=== PATIENT | male | born 1945 | race Caucasian/White ===

== ENCOUNTER 2020-05-04 17:43 | Outpatient (REF) | payer OTHER, SELFPAY ==
--- NOTE | 2020-05-04 18:15 | MR_ITS ---
EXAMINATION: MR BRAIN WITHOUT CONTRAST CLINICAL INFORMATION: Concussion. COMPARISON: None. TECHNIQUE: Multiplanar, multisequence imaging of the brain was performed without contrast. Limited study with motion artifacts. FINDINGS: No diffusion abnormalities are identified to suggest an acute infarct. The ventricles are normal in size. No mass effect or midline shift is seen. Mild chronic white matter microangiopathic changes noted. No extra-axial fluid collections are seen. The brainstem and cerebellum are normal. The gradient refocused acquisition is normal. The craniovertebral junction, marrow signal, and midline structures are normal. The major intracranial flow voids at the level of the [place] of [place] are preserved. The dural venous sinus flow voids are maintained. The mastoid air cells are well aerated. There is moderate ethmoid sinus mucosal thickening and milder mucosal thickening in the frontal and maxillary sinuses. Small proteinaceous retention cyst noted along the floor of the right maxillary antrum. IMPRESSION: Limited study with motion artifacts. Mild chronic white matter microangiopathy. Moderate ethmoid sinus mucosal thickening.
== END 2020-05-04 17:44 | disposition home or self-care (01) ==
LOC: HO.MRI 17:43
PROVIDERS: PCP Internal Medicine; Visit Provider Internal Medicine
DX: S06.0X1S Concussion with loss of consciousness of 30 minutes or less, sequela (principal); R41.3 Other amnesia
CPT/HCPCS: 70551

== ENCOUNTER → 2020-06-30 15:42 | Outpatient (BNVA) | payer OTHER, SELFPAY | PROVIDERS: PCP Internal Medicine; Referring Provider Internal Medicine; Visit Provider Nurse Practitioner | DX: Z76.89 Persons encountering health services in other specified circumstances (principal) ==

== ENCOUNTER 2020-08-02 15:38 | Outpatient (REF) | payer OTHER, SELFPAY ==
[2020-08-02 17:26] LABS: Thyroid Stimulating Hormone 1.39 uIU/mL (0.32-4.0); Vitamin D 25-OH Total 37.1 ng/mL (>30)
[2020-08-02 17:37] LABS: Vitamin B12 569 pg/mL (200-900)
[2020-08-03 08:49] LABS: Syphilis Screen Reactive (Nonreactive)
[2020-08-03 12:42] LABS: Lyme Abs Screen <0.90 index
[2020-08-06 12:37] LABS: Vitamin B1 9 nmol/L (8-30)
[2020-08-09 14:44] LABS: RPR Quantitative Reactive 1:1 (Nonreactive); T.Pallidum Particle Agg Test Reactive (Nonreactive)
== END 2020-08-02 15:39 | disposition home or self-care (01) ==
LOC: HO.LAB 15:38
PROVIDERS: Absent Provider Psychiatry & Neurology Neurology; PCP Internal Medicine; Visit Provider Internal Medicine
DX: R41.3 Other amnesia (principal); S06.0X1S Concussion with loss of consciousness of 30 minutes or less, sequela; F03.90 Unspecified dementia, unspecified severity, without behavioral disturbance, psychotic disturbance, mood disturbance, and anxiety
CPT/HCPCS: 36415; 82306; 82607; 84425; 84443; 86592; 86618; 86780

== ENCOUNTER 2020-08-11 17:29 | Outpatient (REF) | payer OTHER, SELFPAY ==
--- NOTE | 2020-08-11 18:15 | MR_ITS ---
MRI OF THE BRAIN WITHOUT IV CONTRAST INDICATION: MILD DEMENTIA, CEREBRAL MICRO VASCULAR DISEASE COMPARISON: 05/04/2020 TECHNIQUE: Multiplanar multisequence MR imaging of the brain was obtained without IV contrast. FINDINGS: There is no hydrocephalus, extra-axial surface collection, or herniation. Mild to moderate chronic microangiopathy. The major flow voids at the skull base are preserved. There is no acute infarct on diffusion-weighted imaging. There is no intracranial hemorrhage on the gradient recalled echo acquisition. The midline structures are normal. The cerebellar tonsils are normally positioned. The cerebellum and brainstem are normal. The craniocervical junction is normal. Osseous marrow signal intensity is homogenous. The visualized soft tissues are unremarkable. Retention cyst right maxillary sinus. MR/MR head/brain wo con IMPRESSION: - No acute intracranial findings. - Mild to moderate chronic microangiopathy.
== END 2020-08-11 17:30 | disposition home or self-care (01) ==
LOC: HO.MRI 17:29
PROVIDERS: Visit Provider Psychiatry & Neurology Neurology
DX: F03.90 Unspecified dementia, unspecified severity, without behavioral disturbance, psychotic disturbance, mood disturbance, and anxiety (principal); I67.9 Cerebrovascular disease, unspecified
CPT/HCPCS: 70551

== ENCOUNTER 2020-08-18 09:06 | Outpatient (REF) | payer OTHER, SELFPAY ==
[2020-08-18 10:48] LABS: HIV AB/AG Nonreactive (Nonreactive); HIV Num 1 0.06 S/CO (0.00-0.99)
== END 2020-08-18 09:07 | disposition home or self-care (01) ==
LOC: HO.LAB 09:06
PROVIDERS: PCP Internal Medicine; Visit Provider Psychiatry & Neurology Neurology
DX: A52.3 Neurosyphilis, unspecified (principal)
CPT/HCPCS: 36415; 87389

== ENCOUNTER 2020-08-19 07:45 | Outpatient (REF) | payer OTHER, SELFPAY ==
--- NOTE | ~2020-08-19 | FL_ITS ---
EXAMINATION: FL BARIUM SWALLOW CLINICAL INFORMATION: Oropharyngeal dysphagia. COMPARISON: None TECHNIQUE: Barium swallow examination is performed using fluoroscopic evaluation in addition to multiple fluoroscopic spot views. The patient is imaged both upright and prone and using both thick and thin sulfate along with effervescent granules. Fluoroscopy time: 2.6 minutes DAP: 8.75 Gycm2 Images: 94 FINDINGS: Following oral administration of thick barium and barium-coated turkey in upright view, there is normal propagation of bolus from the oral cavity through the pharynx, esophagus into stomach without any laryngeal penetration or aspiration. No obstruction or narrowing seen. Prominent deep piriform sinuses are seen bilaterally with mild retention of barium. On placing patient prone lying and oral administration of thin barium, there is good distention of the entire esophagus without obstruction. No intrinsic or extrinsic indentation seen. FL/FL barium swallow IMPRESSION: Slightly deep bilateral piriform sinuses extending in the lower neck with mild retention of the barium which clears with subsequent swallowing. The rest of the barium swallow exam is unremarkable.
== END 2020-08-19 07:46 | disposition home or self-care (01) ==
LOC: HO.XRAY 07:45
PROVIDERS: Visit Provider Internal Medicine
DX: R07.0 Pain in throat (principal); R13.12 Dysphagia, oropharyngeal phase
CPT/HCPCS: 74220

== ENCOUNTER 2020-08-31 07:52 | Outpatient (REF) | payer OTHER, SELFPAY ==
[2020-08-31] VITALS (9 sets, daily range): BP systolic 113–135; BP diastolic 57–75; PULSE 58–72; RESP 16–18; TEMP 36.3–37.1; O2SAT 95–100; BMI 26.3
--- NOTE | ~2020-08-31 | FL_ITS ---
PROCEDURE: FL XR LUMBAR PUNCTURE CLINICAL INFORMATION: Neurosyphilis. COMPARISON: None TECHNIQUE: Fluoroscopic-guided lumbar puncture. FINDINGS: Informed consent was obtained from the patient prior to the procedure. During this process, the procedure and potential alternatives were explained, along with the intended outcome and benefits. The risks of the procedure, as well as the risk of not doing the procedure, were discussed. The patient was given the opportunity to ask questions regarding the procedure and appeared competent to make medical decisions. A signed consent form which documents this discussion was placed in the medical record. Using sterile technique and fluoroscopic guidance, a 22-gauge spinal needle was directed from a posterior approach into the thecal sac at the level of the L4-L5 disc space. A total of 5 mL of CSF were obtained. Opening pressure was 17 mL of water. Closing pressure was 16 mL of water. Patient tolerated the procedure without difficulty. FLUOROSCOPY TIME: 1.0 minutes. DOSE AREA PRODUCT: 5.924 uGy-m2 (microgray-meter squared). FL/FL guided lumbar puncture LP IMPRESSION: Unremarkable lumbar puncture L4-L5 level as described.
[2020-08-31 09:41] LABS: Prothrombin Time 11.3 SEC (10.8-13.0)
[2020-08-31 09:44] LABS: Partial Thromboplastin Time 33.1 SEC (24.1-38.0)
[2020-08-31 15:08] LABS: CSF Appearance Clear, Colorless; CSF Tube # 3
[2020-08-31 15:15] LABS: Glucose CSF 52 mg/dL; Total Protein CSF 34.6 mg/dL (15-45)
[2020-08-31 15:27] LABS: Appearance CSF CLEAR; CSF Monos 0 %; CSF Other Cells % 0 %; CSF Tube # 4; CSF Volume 1.5 ML; Color CSF COLORLESS; Lymphocytes CSF 0 %; Neutrophils CSF 0 %; Red Blood Cell CSF 53 MM*3; White Blood Cell CSF 0 MM*3
[2020-09-01 06:17] LABS: Oligoclonal Serum Yes
[2020-09-02 14:56] LABS: VDRL Qualitative CSF Nonreactive (Nonreactive)
[2020-09-03 10:42] LABS: Albumin 4.1 g/dL (3.2-4.6); Albumin, CSF 22.8 mg/dL (8.0-42.0); IgG 861 mg/dL (600-1540); IgG Synthesis Rate -2.4 mg/24 h (-9.9-3.3); IgG, CSF 2.3 mg/dL (0.8-7.7)
== END 2020-08-31 17:27 | disposition home or self-care (01) ==
LOC: HO.MS 07:52
PROVIDERS: PCP Internal Medicine; Visit Provider Psychiatry & Neurology Neurology
PROC: 009U3ZZ Drainage of Spinal Canal, Percutaneous Approach (ICD-10-PCS; CPT 62270; principal; 2020-08-31 08:00)
DX: A52.3 Neurosyphilis, unspecified (principal); F03.90 Unspecified dementia, unspecified severity, without behavioral disturbance, psychotic disturbance, mood disturbance, and anxiety; I67.9 Cerebrovascular disease, unspecified; Z87.820 Personal history of traumatic brain injury
CPT/HCPCS: 36415; 62328; 82042; 82945; 83916; 84157; 85610; 85730; 86592; 87015; 87070; 87205; 89051

== ENCOUNTER → 2020-10-10 15:27 | Outpatient (BNVA) | payer OTHER, SELFPAY | PROVIDERS: PCP Internal Medicine; Visit Provider Internal Medicine ==

== ENCOUNTER → 2020-10-26 16:13 | Outpatient (BNVA) | payer OTHER, SELFPAY | PROVIDERS: Visit Provider Internal Medicine | DX: A53.9 Syphilis, unspecified (principal) | CPT/HCPCS: J0561 ==

== ENCOUNTER → 2020-11-02 16:18 | Outpatient (BNVA) | payer OTHER, SELFPAY | PROVIDERS: Visit Provider Internal Medicine | DX: A53.9 Syphilis, unspecified (principal) | CPT/HCPCS: J0561 ==

== ENCOUNTER → 2020-11-09 16:00 | Outpatient (BNVA) | payer OTHER, SELFPAY | PROVIDERS: Visit Provider Internal Medicine | DX: A53.9 Syphilis, unspecified (principal) | CPT/HCPCS: J0561 ==

== ENCOUNTER 2021-01-09 15:15 | Outpatient (REF) | payer OTHER, SELFPAY ==
[2021-01-09 16:27] LABS: Hemoglobin 12.7 g/dl (14.0-18.0); Mean Corpuscular HGB Conc 32.6 g/dl (31.0-36.0); Mean Corpuscular Hemoglobin 27.7 pg (27.0-33.0); Mean Platelet Volume 10.2 fL (9.4-12.4); Platelet Count 206 X10*3/uL (160-400); Red Blood Count 4.59 X10*6/uL (4.60-5.80); Red Cell Distribution Width 12.8 % (11.0-16.0); White Blood Count 6.3 X10*3/uL (4.8-10.8)
[2021-01-09 16:48] LABS: Alanine Aminotransferase 22 U/L (0-40); Albumin Level 4.2 g/dL (3.5-5.0); Alkaline Phosphatase 71 U/L (39-117); Anion Gap 10 (12-20); Aspartate Amino Transferase 25 U/L (5-37); Bilirubin Total 0.9 mg/dL (0.0-1.0); Blood Urea Nitrogen 17 mg/dL (9-16); Calcium 8.8 mg/dL (8.4-10.2); Carbon Dioxide 26 mmol/L (22-29); Chloride 109 mmol/L (96-108); Estimated Glomerular Filt Rate > 60; Glucose Random 84 mg/dL (60-115); Potassium 4.4 mmol/L (3.3-5.1); Sodium 141 mmol/L (135-145); Total Protein 6.5 g/dL (6.5-8.0)
== END 2021-01-09 15:16 | disposition home or self-care (01) ==
LOC: HO.LAB 15:15
PROVIDERS: PCP Internal Medicine; Referring Provider Internal Medicine; Visit Provider Nurse Practitioner Family
DX: Z01.818 Encounter for other preprocedural examination (principal)
CPT/HCPCS: 36415; 80053; 85027

== ENCOUNTER 2021-03-10 06:34 | Day surgery (SDC) | payer OTHER, SELFPAY ==
[2021-03-06 10:20] VITALS: BMI 28.9
--- NOTE | 2021-03-09 08:34 | HO.ANESPROP2 ---
Documented by User: Ronel Delaney NP 03/09/21 08:35 HPI - Anesthesia Eval Consult details Narrative: 75yo M for Colonoscopy PMFSH Active Problems Active Problems: All Active Problems (Updated 03/06/21 @ 10:45 by Janis Waterman RN) Syphilis (Acute) Past Medical History Medical History Family history of adverse effect to anesthesia History of lumbar puncture Syphilis Family History Family History Mother Heart attack Paternal Uncle Alcoholic cirrhosis Cancer Paternal Aunt Thyroid condition Diabetes Surgical History Surgical History History of nasal septoplasty Social History Social History Household Members: Children Alcohol intake: never Patient Tobacco Use Status: Former Tobacco user Quit Date: 35+ years ago Tobacco use type: Cigarette Use of substances other than those prescribed or required for medical reasons: No Advance Directives Information Provided: No Recently lost weight without trying: No Eating poorly because of decreased appetite: No Nutrition Risks: No Nutritional Risk Meds Allergies Allergy/AdvReac Type Severity Reaction Status Date / Time No Known Allergies Allergy Verified 03/10/21 07:10 Home Medications Medication Instructions Recorded Confirmed Last Taken Type aspirin 81 mg tablet,delayed 81 mg PO DAILY 01/09/21 03/10/21 03/08/21 History release (Adult Low Dose Aspirin) Exam Exam Date and Time: March 09, 2021 0834 Height,Weight and Vital Signs: Height 5 ft 1 in Weight 69.4 kg Pertinent Lab Results Pertinent Lab Results: Laboratory Tests 01/09/21 01/09/21 16:15 16:15 WBC 6.3 Hgb 12.7 L Hct 39.0 L Plt Count 206 Sodium 141 Potassium 4.4 Chloride 109 H Carbon Dioxide 26 BUN 17 H Creatinine 0.83 Assessment and Plan Assessment Anesthesia Assessment: Chart Reviewed Documented by User: Mercedes Sheltno MD 03/10/21 07:16 [facility] Past Medical History Medical History Family history of adverse effect to anesthesia History of lumbar puncture Syphilis Family History Family History Mother Heart attack Paternal Uncle Alcoholic cirrhosis Cancer Paternal Aunt Thyroid condition Diabetes Family history of problems with anesthesia: No Surgical History Surgical History History of nasal septoplasty History of Problems with Anesthesia: No Social History Social History Household Members: Children Alcohol intake: never Patient Tobacco Use Status: Former Tobacco user Quit Date: 35+ years ago Tobacco use type: Cigarette Use of substances other than those prescribed or required for medical reasons: No Advance Directives Information Provided: No Recently lost weight without trying: No Eating poorly because of decreased appetite: No Nutrition Risks: No Nutritional Risk Meds Allergies Allergy/AdvReac Type Severity Reaction Status Date / Time No Known Allergies Allergy Verified 03/10/21 07:10 Home Medications Medication Instructions Recorded Confirmed Last Taken Type aspirin 81 mg tablet,delayed 81 mg PO DAILY 01/09/21 03/10/21 03/08/21 History release (Adult Low Dose Aspirin) Exam Airway Mallampati Class: II TM Dist: >3cm Neck ROM: Full Assessment and Plan Assessment Anesthesia Assessment: Anesthesia Plan Discussed Final Anesthetic Review Family History of Problems with Anesthesia: No History of Problems with Anesthesia: No NPO: Yes ASA Class: II Final Preanesthetic Review: No Changes in Pt Med Stat, Meds/Allgs Chart Reviewed, Consent Obtained/Reviewed and Anes Risks/Benef Reviewed Patient Risk: Low Procedure Risk: Low Anesthetic Plan Anesthetic Plan: MAC: Disposition: Standard PACU
[2021-03-10 07:01] VITALS: BP 131/74; PULSE 65; RESP 16; TEMP 36.8; O2SAT 98
[2021-03-10] MEDS: Lactated Ringers 1,000 ML 100 ML IVCONT (07:11)
[2021-03-10] MEDS: Sodium Phosphate,Mono-Dibasic 133 ML ENEMA PR (07:15)
--- NOTE | 2021-03-10 07:16 | MHC.SHP ---
Pre-Procedural Eval Section A Date of Service: 03/10/21 The patient is an INPATIENT: No The History & Physical has been completed within 30 days and I have reviewed it.: No Section B Chief Complaint: Screening Details of Present Illness: Colon Cancer screening Relevant Family History (Specify if Yes): No Relevant Social History: None Present Medications: see Short Stay Collaborative assessment Medical History: Significant History (Syphilis) History of Previous Operations: Relevant previous surgery/procedure and date(s) (History of nasal septoplasty) Allergies: Allergies Allergy/AdvReac Type Severity Reaction Status Date / Time No Known Allergies Allergy Verified 03/10/21 07:10 Review of Systems Sugical H&P ROS: Negative: Constitution, Cardiovascular, Respiratory and Gastrointestinal Exam Surgical H&P Exam: Normal: Heart, Normal: Lungs and Normal: Extremities and Significant Findings: Abdomen (incisional hernia) Plan Diagnosis/Plan: Unchanged I have reviewed the history and physical and performed a pertinent physical examination on my patient. No changes have occurred unless specified.
--- NOTE | 2021-03-10 07:17 | PM.OP ---
Brief Operative Note Date of Service: 03/10/21 Pre-op diagnosis: Colon cancer screening Post-op diagnosis: other (Colon polyps, diverticulosis, hemorrhoid) Procedure: COLONOSCOPY TILL CECUM WITH BIOPSIES AND SNARE POLYPECTOMY Consent: Indications for the procedure and potential complications of bleeding, perforation, reaction to medications and missed diagnosis were discussed with the patient and informed consent was obtained. Instrument: Olympus PCF H 190 L variable stiffness pediatric colonoscope Monitoring: Vital signs and clinical assessment, intermittent blood pressure monitoring, continuous EKG monitoring, Pulse oximetry and Carbon Dioxide monitoring were done throughout the procedure. Colon withdrawl time was 26 minutes. Procedure: The patient was placed in the left lateral decubitis position and pre-procedure medications were administered. After a digital rectal examination of the ano-rectum, the video colonoscope was inserted into the rectum and advanced through the colon to the cecum. The colonoscope was slowly withdrawn in a retrograde panoramic fashion and the colon mucosa was carefully examined including a retroflexed view of the rectum. Findings and interventions are described below. Procedure Difficulty: Colon was long and tortuous due to presence a large ventral hernia. Patient was placed in the supine position and abdominal pressure was applied to intubate the transverse colon Findings: Terminal Ileum: Not evaluated Cecum: Normal Ascending Colon: A 2.5 cms sessile polyp in the proximal AC overlying fold. Polyp was removed with a hot snare. Only part of the polyp was retrieved. Transverse Colon: A 10 mm sessile polyp - removed with a hot snare. A 4-5 mm sessile polyp removed with the cold biopsy Descending Colon: Moderate diverticulosis Sigmoid Colon: Moderate diverticulosis Rectum: 5-6 mm sessile polyp removed with the cold biopsy Ano-rectum: Moderate internal hemorrhoids Colon preparation: Excellent after some irrigation Impression and Post Procedure Diagnosis: Colonoscopy Findings: Two large to medium sized and two small polyps removed Moderate diverticulosis seen in the left colon Moderate hemorrhoids on retroflexed exam. Plan: Await pathology results Patient has an appointment on 03/24/21 in the GI Clinic with Lolly Silva FNP-BC. Repeat Colonoscopy interval based on path results - in 2 years if polyps are adenomatous and 10 years if polyps are hyperplastic. Above findings were reviewed with the patient and colon polyps and diverticulosis handouts were given in the discharge area Surgeon: Halley Vines MD Anesthesia: MAC (Drew Caldera CRNA) Was an Building Equipment Operator used for this Procedure?: Yes Building Equipment Operator: Laura Yanez Estimated blood loss (mL): 0 Pathology: other ( a: ascending colon polyp b: transverse colon polyps c: rectal polyp) Condition: stable Disposition: PACU
--- NOTE | 2021-03-10 07:39 | W.PM.OPN ---
Operative Note Operative Note Date of Service: 03/10/21 Narrative: Pre-op diagnosis:?Colon cancer screening Post-op diagnosis:?other (Colon polyps, diverticulosis, hemorrhoid) Procedure:? COLONOSCOPY TILL CECUM WITH BIOPSIES AND SNARE POLYPECTOMY Consent: Indications for the procedure and potential complications of bleeding, perforation, reaction to medications and missed diagnosis were discussed with the patient and informed consent was obtained. Instrument: Olympus PCF H 190 L variable stiffness pediatric colonoscope Monitoring: Vital signs and clinical assessment, intermittent blood pressure monitoring, continuous EKG monitoring, Pulse oximetry and Carbon Dioxide monitoring were done throughout the procedure. Colon withdrawl time was 26 minutes. Procedure: The patient was placed in the left lateral decubitis position and pre-procedure medications were administered. After a digital rectal examination of the ano-rectum, the video colonoscope was inserted into the rectum and advanced through the colon to the cecum. The colonoscope was slowly withdrawn in a retrograde panoramic fashion and the colon mucosa was carefully examined including a retroflexed view of the rectum. Findings and interventions are described below. Procedure Difficulty:? Colon was long and tortuous due to presence a large ventral hernia.? Patient was placed in the supine position and abdominal pressure was applied to intubate the transverse colon Findings: Terminal Ileum: Not evaluated Cecum:? Normal Ascending Colon:? A 2.5 cms sessile polyp in the proximal AC overlying fold.? Polyp was removed with a hot snare. Only part of the polyp was retrieved. Transverse Colon:? A 10 mm sessile polyp - removed with a hot snare.? A 4-5 mm sessile polyp removed with the cold biopsy Descending Colon:? Moderate diverticulosis Sigmoid Colon:? Moderate diverticulosis Rectum:? 5-6 mm sessile polyp removed with the cold biopsy Ano-rectum:? Moderate internal hemorrhoids Colon preparation: Excellent? after some irrigation Impression and Post Procedure Diagnosis: Colonoscopy Findings: Two large to medium sized and two small polyps removed Moderate diverticulosis seen in the left colon Moderate hemorrhoids on retroflexed exam. Plan: Await pathology results Patient has an appointment on 03/24/21 in the GI Clinic with ? Lolly Silva FNP-BC. Repeat Colonoscopy interval based on path results - in 2 years if polyps are adenomatous and 10 years if polyps are hyperplastic. Above findings were reviewed with the patient and colon polyps and diverticulosis handouts were given in the discharge area Surgeon:?Halley Vines MD Anesthesia:?MAC (Drew Caldera CRNA) Was an Transitional Living Specialist used for this Procedure?:?Yes Transitional Living Specialist:?Laura Yanez Estimated blood loss (mL):?0 Pathology:?other ( a: ascending colon polyp? b: transverse colon polyps? c: rectal polyp) Condition:?stable Disposition:?PACU
[2021-03-10 08:33] VITALS: BP 110/52; PULSE 69; RESP 16; TEMP 36.5; O2SAT 97
[2021-03-10 08:48] VITALS: BP 114/58; PULSE 53; RESP 19; O2SAT 96
[2021-03-10 09:00] VITALS: BP 118/60; PULSE 53; RESP 19; O2SAT 98
== END 2021-03-10 09:22 | disposition home or self-care (01) ==
PROVIDERS: PCP Internal Medicine; Visit Provider Internal Medicine Gastroenterology
PROC: 0DJD8ZZ Inspection of Lower Intestinal Tract, Via Natural or Artificial Opening Endoscopic (ICD-10-PCS; CPT 45378; principal; 2021-03-10 07:30)
DX: Z12.11 Encounter for screening for malignant neoplasm of colon (principal); D12.2 Benign neoplasm of ascending colon; D12.3 Benign neoplasm of transverse colon; K62.1 Rectal polyp; K57.30 Diverticulosis of large intestine without perforation or abscess without bleeding; K64.8 Other hemorrhoids; K43.9 Ventral hernia without obstruction or gangrene
CPT/HCPCS: 45385; 45380; 88305

== ENCOUNTER → 2021-04-04 15:42 | Outpatient (BNVA) | payer OTHER, SELFPAY | PROVIDERS: Referring Provider Internal Medicine; Visit Provider Nurse Practitioner Family ==

== ENCOUNTER → 2021-06-30 16:09 | Outpatient (BNVA) | payer OTHER, SELFPAY | PROVIDERS: PCP Internal Medicine; Referring Provider Internal Medicine; Visit Provider Nurse Practitioner Family ==

== ENCOUNTER 2022-01-09 15:26 | Outpatient (REF) | payer OTHER, SELFPAY ==
--- NOTE | ~2022-01-09 | US_ITS ---
EXAMINATION: US VENOUS ULTRASOUND WITH DOPPLER LOWER EXTREMITY, BILATERAL CLINICAL INFORMATION: Bilateral hip pain. COMPARISON: None TECHNIQUE: Ultrasound of the deep veins is performed from the hip to the calf with compression sonography and color and pulse Doppler assessment. Spectral analysis with color-flow imaging is performed. FINDINGS: RIGHT: There is normal venous compression and respiratory variation and augmented flow. The visualized common femoral vein, superficial femoral vein, profunda femoral vein, popliteal vein, and the trifurcation region shows no evidence of deep venous thrombosis. There is no significant popliteal fossa cyst. There are varicose vein seen in the right. No fossa. No Orr's cyst seen. LEFT: There is normal venous compression and respiratory variation and augmented flow. The visualized common femoral vein, superficial femoral vein, profunda femoral vein, popliteal vein, and the trifurcation region shows no evidence of deep venous thrombosis. There is no significant popliteal fossa cyst. If the patient's symptoms persist, followup ultrasound in 5 days 7 days might be of value to exclude proximal propagation from a non-visualized calf vein. US/US venous duplex LE BI IMPRESSION: No DVT demonstrated in the bilateral lower extremity.
== END 2022-01-09 15:27 | disposition home or self-care (01) ==
LOC: HO.US 15:26
PROVIDERS: Visit Provider Registered Nurse Community Health
DX: M79.651 Pain in right thigh (principal); M79.652 Pain in left thigh
CPT/HCPCS: 93970

== ENCOUNTER → 2022-11-14 09:57 | Outpatient (BNVA) | payer MEDICARE, SELFPAY | PROVIDERS: PCP Internal Medicine; Visit Provider Nurse Practitioner Family | DX: N40.0 Benign prostatic hyperplasia without lower urinary tract symptoms (principal); R35.0 Frequency of micturition | CPT/HCPCS: 51798; 99202 ==

== ENCOUNTER 2022-11-16 10:48 | Outpatient (REF) | payer MEDICARE, SELFPAY ==
[2022-11-16 13:00] LABS: Prostate Specific Antigen 1.36 ng/mL (<0.05-4.0)
== END 2022-11-16 10:49 | disposition home or self-care (01) ==
LOC: HO.LAB 10:48
PROVIDERS: PCP Internal Medicine; Visit Provider Nurse Practitioner Family
DX: N40.0 Benign prostatic hyperplasia without lower urinary tract symptoms (principal); Z12.5 Encounter for screening for malignant neoplasm of prostate
CPT/HCPCS: 36415; 84153

== ENCOUNTER 2022-11-29 09:37 | Outpatient (REF) | payer MEDICARE, SELFPAY ==
--- NOTE | ~2022-11-29 | US_ITS ---
EXAMINATION: US RETROPERITONEAL COMPLETE (RENAL) CLINICAL INFORMATION: Frequency of micturition. COMPARISON: None available. TECHNIQUE: Real-time imaging of the kidneys and bladder. FINDINGS: RIGHT KIDNEY: 11.0 x 4.4 x 5.3 cm (SAG x AP x TRV). The kidney is normal in size, contour, and echogenicity. Renal cortical thickness is normal. No calculi or focal parenchymal lesions. No hydronephrosis. LEFT KIDNEY: 9.7 x 5.1 x 5.7 cm (SAG x AP x TRV). Lobular renal contour which may reflect areas of parenchymal cortical scarring. Renal cortical thickness is normal. No calculi or focal parenchymal lesions. No hydronephrosis. BLADDER: Partially distended. Bilateral ureteral jets are demonstrated. Prevoid bladder volume is 120.05 mL. Postvoid bladder volume is 17.8 mL. Trabeculated urinary bladder. ADDITIONAL FINDINGS: Prostate is enlarged measuring 109 mL. US/US retroperitoneal comp IMPRESSION: 1. Lobular left renal contour which may reflect areas of parenchymal cortical scarring. 2. Trabeculated urinary bladder. 3. Prostate is enlarged measuring 109 mL.
== END 2022-11-29 09:38 | disposition home or self-care (01) ==
LOC: HO.US 09:37
PROVIDERS: PCP Internal Medicine; Visit Provider Nurse Practitioner Family
DX: N40.1 Benign prostatic hyperplasia with lower urinary tract symptoms (principal); R35.0 Frequency of micturition
CPT/HCPCS: 76770

== ENCOUNTER → 2022-12-26 10:09 | Outpatient (BNVA) | payer MEDICARE, SELFPAY | PROVIDERS: PCP Internal Medicine; Visit Provider Nurse Practitioner Family | DX: N40.0 Benign prostatic hyperplasia without lower urinary tract symptoms (principal); R39.9 Unspecified symptoms and signs involving the genitourinary system | CPT/HCPCS: 51798; 99212 ==

== ENCOUNTER 2023-03-27 14:12 | Outpatient (AMB) | payer MEDICARE, SELFPAY ==
--- NOTE | 2023-03-27 14:22 | A.OFFVIS_ITS ---
Intake Vital Signs 03/27/23 14:26 Height 4 ft 11 in Weight 160 lb BMI 32.3 BP 144/74 H Blood Pressure Location Lt brachial Position Sitting Pulse 78 Intake Visit Reasons: 1 year f/u colonoscopy, TA Intake Note: Patient yearly follow up Patient denies any GI issues. 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 Patient will need colonoscopy in 2022. Patient denies any abdominal pain or discomfort Constipation Patient reports that he is moving his bowels every day. Eating more fruits and vegetables and drinking plenty fluids. Patient is also pretty active works full- time. I will see him in 1 year to re-evaluate. Patient will be due to go for colorectal screening. Patient denies any melena, hematochezia, unintentional weight loss of in like stools. He is agreeable to this plan and verbalizes understanding of instructions. He was given the opportunity to ask questions and all questions answered. TODAY'S VISIT Patient is here today for follow-up. Patient reports that he has been doing well. Denies any GI concerning symptoms. Denies any melena, hematochezia, unintentional weight loss or ribbon like stools. Patient denies any dyspepsia, dysphagia or odynophagia. Patient reports that he has been moving his bowels well without any issues. Patient denies any issues with anesthesia in the past. Overdue for colonoscopy will try to poke it today. Patient is going to another appointment to see his urologist today. Patient reports having trouble voiding. Patient denies any abdominal pain or discomfort. Patient denies any pelvic pain. Denies any back pain. No burning when urinating. Patient is not taking any anticoagulation medication. No history of sleep apnea. [facility] Medical History Diverticulosis Family history of adverse effect to anesthesia History of lumbar puncture Syphilis Tubular adenoma Surgical History Hx of colonoscopy History of nasal septoplasty Family History Mother Heart attack Paternal Uncle Alcoholic cirrhosis Cancer Paternal Aunt Thyroid condition Diabetes Social History Household Members: Children Alcohol intake: never Patient Tobacco Use Status: Former Tobacco user Quit Date: 35+ years ago Tobacco use type: Cigarette Review of Systems Const Denies weight gain and Denies weight loss ENT Reports no additional complaints, Denies dysphagia and Denies odynophagia Card Reports no additional complaints Resp Reports no additional complaints GI Denies abdominal pain, Denies belching, Denies melena, Denies bloating, Denies change in bowel habits, Denies dysphagia, Denies excessive flatus, Denies dyspepsia, Denies heartburn, Denies diarrhea, Denies loose stools, Denies nausea, Denies odynophagia and Denies vomiting Reports no additional complaints Musc Reports no additional complaints Neuro Reports no additional complaints Psych Reports no additional complaints Endo Reports no additional complaints Physical Exam Vital Signs: Last Vital Signs Pulse 78 03/27/23 14:26 BP 144/74 H 03/27/23 14:26 BMI result Body Mass Index 32.3 Const General: healthy appearing, no acute distress and well developed Nutritional Appearance: well nourished Orientation/consciousness: patient oriented x3 HEENT Head: Yes normal to inspection, Yes normocephalic and Yes atraumatic Face and sinus: Yes normal facial exam Mouth: Normal oral and palatal mucosa present Throat: Yes posterior oropharynx normal, Yes tonsils normal and Yes uvula midline Eyes General: appearance normal, both eyes and all related structures Neck Neck: Yes normal visual inspection, Yes full ROM and Yes trachea midline Thyroid: Thyroid normal Resp Effort & Inspection: normal respiratory effort, able to speak in complete sentences, no tracheal deviation and symmetric chest movement Auscultation: clear to auscultation bilaterally Cardio Rate: regular rate Heart sounds: S1 normal heart sound present and S2 normal heart sound present GI Inspection: Yes normal to inspection, No distended and Yes obesity Palpation (GI): Soft to palpation, not firm, nontender and No hepatosplenomegaly present Auscultation: normal bowel sounds General: Yes no CVA tenderness Back/Spine/Pelvis Back: no CVA tenderness Skin General skin exam: elasticity normal, turgor normal and dry skin Neuro General: patient oriented x3 Psych Appearance: grossly normal Mental Status: mental status grossly normal Speech and movement: Normal speech and movement present Assessment & Plan Assessment & Plan (1) Diverticulosis: Code(s): K57.90 - Diverticulosis of intestine, part unspecified, without perforation or abscess without bleeding (2) Tubular adenoma: Code(s): D36.9 - Benign neoplasm, unspecified site (3) Screen for colon cancer: Code(s): Z12.11 - Encounter for screening for malignant neoplasm of colon Plan History of tubular adenoma found on colonoscopy in February of 2021. Patient is due for colorectal screening this year. Patient denies any melena, hematochezia, unintentional weight loss or ribbon like stools. Patient denies any GI concerning symptoms. States that he is moving his bowels without any issues. No change since last procedure. Not on any anticoagulation medications. No history of sleep apnea. Patient denies any respiratory or cardiac symptoms. May proceed with bulking the procedure. What to expect before during and after the procedure discussed with patient. Patient's daughter is present during the visit she will be helping patient with prepping and mixing the prep. Clear liquid diet day before the procedure discussed with patient. Both patient and daughter are agreeable to plan of care and verbalizes understanding of instructions. They were given the opportunity to ask questions and all questions answered. Thank you for allowing me to participate in his care Medications: New polyethylene glycol 3350 (Miralax) As directed by gastroenterology department at [facility] [place] 238 grams PO ONCE 238 grams 0RF Z12.11 - Encounter for screening for malignant ne oplasm of colon bisacodyl (Dulcolax (bisacodyl)) take 2 tabs at noon the day before your colonoscopy 10 mg (2 x 5 mg) PO ONCE 1 day 2 tabs 0RF Z12.11 - Encounter for screening for malignant neoplasm of colon Coding Level of Care Code Est Pt Level 3 (25248) Diagnoses Diverticulosis K57.90 Tubular adenoma D36.9 Screen for colon cancer Z12.11 Time Spent (min) 35 Comment 20 minutes spent with patient and additional 15 minutes spent reviewing his records
[2023-03-27 14:26] VITALS: BP 144/74; PULSE 78; BMI 32.3
== END 2023-03-27 15:58 | disposition home or self-care (01) ==
PROVIDERS: Visit Provider Nurse Practitioner Family
DX: K57.90 Diverticulosis of intestine, part unspecified, without perforation or abscess without bleeding (principal); D36.9 Benign neoplasm, unspecified site; Z12.11 Encounter for screening for malignant neoplasm of colon
CPT/HCPCS: 99213

== ENCOUNTER → 2023-03-27 14:12 | Outpatient (BNVA) | payer MEDICARE, SELFPAY | PROVIDERS: Visit Provider Nurse Practitioner Family | DX: Z12.11 Encounter for screening for malignant neoplasm of colon (principal); K57.90 Diverticulosis of intestine, part unspecified, without perforation or abscess without bleeding; D36.9 Benign neoplasm, unspecified site; N40.0 Benign prostatic hyperplasia without lower urinary tract symptoms | CPT/HCPCS: 51798; 99212 ==

== ENCOUNTER 2023-06-19 12:11 | Outpatient (REF) | payer MEDICARE, SELFPAY ==
--- NOTE | ~2023-06-19 | XR_ITS ---
EXAMINATION: XR SHOULDER, RIGHT CLINICAL INFORMATION: Acute pain. COMPARISON: None available. TECHNIQUE: AP external rotation, Grashey, scapular Y, and axillary views of the right shoulder. FINDINGS: There is bony demineralization. The glenohumeral joint is intact and shows mild osteoarthritic change. The acromioclavicular and coracoclavicular intervals are normal. There is moderately severe osteoarthritic change of the acromioclavicular joint. No fracture or dislocation is seen. There is a small distal acromial undersurface osteophyte, and there is cortical irregularity of the greater tuberosity of the proximal right humerus. No fracture or dislocation is seen. There is no abnormal soft tissue calcification or foreign body. No right pneumothorax is seen. XR/XR shoulder RT min 2V IMPRESSION: 1. There is mild osteoarthritic change of the right glenohumeral joint, and moderately severe osteoarthritic change is seen of the acromioclavicular joint. 2. Findings suggest right rotator cuff impingement, without fred calcific tendinitis noted.
== END 2023-06-19 12:12 | disposition home or self-care (01) ==
LOC: HO.XRAY 12:11
PROVIDERS: PCP Internal Medicine; Visit Provider General Practice
DX: M25.511 Pain in right shoulder (principal)
CPT/HCPCS: 73030

== ENCOUNTER → 2023-11-22 11:27 | Day surgery (SDC) | payer MEDICARE, SELFPAY ==
--- NOTE | 2023-11-20 14:25 | HO.ANESPROP2 ---
Documented by User: Ronel Delaney NP 11/20/23 14:25 HPI - Anesthesia Eval Consult details Narrative: 78yo M for Colonoscopy PMFSH Active Problems Active Problems: All Active Problems Lower urinary tract symptoms (Acute) Enlarged prostate (Acute) BPH (benign prostatic hyperplasia) (Acute) Urinary frequency (Acute) Tubular adenoma (Acute) Diverticulosis (Acute) Syphilis (Acute) Past Medical History Medical History Tubular adenoma Diverticulosis Family history of adverse effect to anesthesia History of lumbar puncture Syphilis Family History Family History Mother Heart attack Paternal Uncle Alcoholic cirrhosis Cancer Paternal Aunt Thyroid condition Diabetes Family history of problems with anesthesia: No Surgical History Surgical History Hx of colonoscopy History of nasal septoplasty History of Problems with Anesthesia: No Social History Social History Household Members: Children Alcohol intake: never Patient Tobacco Use Status: Former Tobacco user Quit Date: 35+ years ago Tobacco use type: Cigarette Advance Directives: No Advance Directives Information Provided: Yes Meds Allergies Allergy/AdvReac Type Severity Reaction Status Date / Time No Known Allergies Allergy Verified 03/27/23 14:21 Home Medications ?Medication ?Instructions ?Recorded ?Confirmed ?Last Taken ?Type atorvastatin 40 mg tablet 40 mg PO DAILY 12/26/22 Unknown History Assessment and Plan Assessment Anesthesia Assessment: Chart Reviewed Final Anesthetic Review Family History of Problems with Anesthesia: No History of Problems with Anesthesia: No Documented by User: Soo Corona MD 11/22/23 11:54 PMFSH Past Medical History Medical History Tubular adenoma Diverticulosis Family history of adverse effect to anesthesia History of lumbar puncture Syphilis Family History Family History Mother Heart attack Paternal Uncle Alcoholic cirrhosis Cancer Paternal Aunt Thyroid condition Diabetes Surgical History Surgical History Hx of colonoscopy History of nasal septoplasty Social History Social History Household Members: Children Alcohol intake: never Patient Tobacco Use Status: Former Tobacco user Quit Date: 35+ years ago Tobacco use type: Cigarette Advance Directives: No Advance Directives Information Provided: Yes Meds Allergies Allergy/AdvReac Type Severity Reaction Status Date / Time No Known Allergies Allergy Verified 03/27/23 14:21 Home Medications ?Medication ?Instructions ?Recorded ?Confirmed ?Last Taken ?Type atorvastatin 40 mg tablet 40 mg PO DAILY 12/26/22 Unknown History Exam Airway Mallampati Class: II TM Dist: >3cm Neck ROM: Full Heart: rrr Lungs: cta Assessment and Plan Assessment Anesthesia Assessment: Anesthesia Plan Discussed Final Anesthetic Review NPO: Yes ASA Class: II Final Preanesthetic Review: No Changes in Pt Med Stat, Meds/Allgs Chart Reviewed, Consent Obtained/Reviewed and Anes Risks/Benef Reviewed Patient Risk: Low Procedure Risk: Low Anesthetic Plan Anesthetic Plan: MAC: Disposition: Standard PACU
--- NOTE | ~2023-11-22 | XR_ITS ---
EXAMINATION: XR HIP, LEFT CLINICAL INFORMATION: Order is for left hip pain, patient's family denies injury. Patient is a poor historian. COMPARISON: None available. TECHNIQUE: Two views of the left hip. FINDINGS: Bones are diffusely demineralized. Moderate degenerative changes with joint space narrowing and hypertrophic change in the left hip. Bony exostosis along the superolateral aspect of the iliac wing, just above the acetabulum. Possible periosteal reaction along the partially imaged shaft of the femur should be evaluated with dedicated views of the femur. XR/XR hip LT min 2V IMPRESSION: 1. Moderate degenerative changes in the left hip. 2. Bony exostosis along the superolateral aspect of the iliac wing, just above the acetabulum. 3. Possible periosteal reaction along the partially imaged shaft of the femur should be evaluated with dedicated views of the femur. Dedicated imaging with CT scan or MRI recommended for further evaluation if there is clinical concern for fracture or other underlying pathology.
== END ==
LOC: HO.SSS 11:27
PROVIDERS: PCP Internal Medicine; Visit Provider Internal Medicine Gastroenterology
DX: Z12.11 Encounter for screening for malignant neoplasm of colon (principal); Z53.8 Procedure and treatment not carried out for other reasons; Z86.010 Personal history of colon polyps; M25.552 Pain in left hip
CPT/HCPCS: 36415; 73502; 84153

== ENCOUNTER 2023-11-22 14:25 | Outpatient (REF) | payer MEDICARE, SELFPAY ==
[2023-11-22 17:44] LABS: Prostate Specific Antigen 1.07 ng/mL (<0.05-4.0)
== END 2023-11-22 14:26 | disposition home or self-care (01) ==
LOC: HO.HHCL 14:25
PROVIDERS: Visit Provider Nurse Practitioner Family
DX: Z13.89 Encounter for screening for other disorder (principal)
CPT/HCPCS: 36415; 84153

== ENCOUNTER 2023-12-25 09:28 | Outpatient (AMB) | payer MEDICARE, SELFPAY ==
--- NOTE | 2023-12-25 09:30 | A.OFFVIS_ITS ---
Intake Visit Reasons: 1y/labs(set) Intake Note: Patient presents for follow up on: BPH, Enlarged Prostate, ,and PSA labs PSA: 1.07 Urology Medications: Finasteride and Tamsulosin Blood Thinner: none PVR: 30ml's Project Mgr Required: Yes Accompanied by: Daughter Allergies No Known Allergies Allergy (Verified 12/25/23 11:27) Medication List - Last Reconciled 12/25/23 by CHARISSA Edwards atorvastatin 40 mg PO DAILY bisacodyl (Dulcolax (bisacodyl)) 20 mg (4 x 5 mg) PO ONCE 1 day finasteride 5 mg PO DAILY 90 days polyethylene glycol 3350 (Miralax) 238 grams PO ONCE 1 day tamsulosin 0.4 mg PO DAILY 90 days HPI Comments Details: David is a pleasant 78-year-old male patient of Dr. Gamboa who was accompanied by his daughter at today's visit. He presents to the office toleslie coronado for follow-up. In discussion with the patient today he reports to be doing and feeling well. He currently denies any bothersome urinary issues or concerns. He reports compliance with Flomax and finasteride as prescribed. Recent PSA results reviewed with the patient today as noted and trended below: PSAa: 12/04 1.4, 12/05 1.1 Previous workup has included a retroperitoneal ultrasound noting bilateral kidneys with no calculi, lesions, and or hydronephrosis. The bladder is partially distended. Prevoid bladder volume is approximately 120 mL. Postvoid bladder volume is approximately 20 mL. Trabeculated urinary bladder. He otherwise offers no issues or concerns at this time. In office urinalysis results reviewed with the patient today. PVR 30 mL. When asked he reports be happy with current voiding parameters. He discusses having to reschedule his colonoscopy as he had soup prior to procedure. He otherwise denies any other issues or concerns at this time. [facility] Medical History Tubular adenoma Diverticulosis Family history of adverse effect to anesthesia History of lumbar puncture Syphilis Surgical History Hx of colonoscopy History of nasal septoplasty Family History Mother Heart attack Paternal Uncle Alcoholic cirrhosis Cancer Paternal Aunt Thyroid condition Diabetes Social History Household Members: Children Alcohol intake: never Patient Tobacco Use Status: Former Tobacco user Tobacco use type: Cigarette Review of Systems Const All systems reviewed & are unremarkable except as noted in HPI and below Reports no additional complaints Eyes Reports no additional complaints ENT Reports no additional complaints Card Reports no additional complaints Resp Reports no additional complaints GI Reports no additional complaints Reports as per HPI Musc Reports no additional complaints Neuro Reports no additional complaints Psych Reports no additional complaints Endo Reports no additional complaints Adalberto/Lymph Reports no additional complaints Aller/Immun Reports no additional complaints Physical Exam Const General: cooperative, healthy appearing, comfortable, no acute distress, well developed, alert and awake Orientation/consciousness: patient oriented x3 Limitations: no limitations HEENT Head: Yes normal to inspection, Yes normocephalic and Yes atraumatic Ears: hearing grossly normal bilaterally Eyes General: appearance normal, both eyes and all related structures Neck Neck: Yes normal visual inspection and Yes trachea midline Chest Chest palpation & inspection: normal inspection of the chest Resp Effort & Inspection: normal respiratory effort and able to speak in complete sentences Cardio Rate: regular rate GI Inspection: Yes normal to inspection General: Yes no CVA tenderness Back/Spine/Pelvis Back: no CVA tenderness Skin General skin exam: no rashes or lesions noted Neuro General: patient oriented x3 Extrem General: Yes normal to inspection Psych Appearance: grossly normal and well kempt Mental Status: mental status grossly normal Speech and movement: Normal speech and movement present and Clear speech present Affect: normal affect Attitude: cooperative Thought process: Normal thought process present Thought content: Normal thought content present Insight: Fair insight present (Psych) Judgement: Fair judgement present (Psych) Office Procedures Post Void Residual Post Residual Void Post Void Residual (PVR): 30 14630-Joro Void Residual by ultrasound Results AMB Urinalysis, Automated UA Leukoctes 0 Remedios/uL Last Edit by Thelma Aguilar on 12/25/23 09:45 UA Nitrite Negative Last Edit by Thelma Aguilar on 12/25/23 09:45 UA Urobilinogen 0.2 mg/dL Last Edit by Thelma Aguilar on 12/25/23 09:45 UA Protein 0 mg/dL Last Edit by Thelma Aguilar on 12/25/23 09:45 UA pH 6.0 Last Edit by Thelma Felisarobin on 12/25/23 09:45 UA Blood 0 Landry/uL Last Edit by Thelma Felisarobin on 12/25/23 09:45 UA Specific [place] 1.015 Last Edit by Thelma Felisarobin on 12/25/23 09:45 UA Ketone Negative Last Edit by Thelma Felisarobin on 12/25/23 09:45 UA Bilirubin 0 mg/dL Last Edit by Thelma Felisarobin on 12/25/23 09:45 UA Glucose 0 mg/dL Last Edit by Thelma Felisarobin on 12/25/23 09:45 Results Reviewed Results Reviewed: Laboratory Last Values Urine pH (Auto) 6.0 12/25/23 09:35 Specific [place] (Auto) 1.015 12/25/23 09:35 Urine Protein (Auto) 0 mg/dL 12/25/23 09:35 Glucose (UA)(Auto) 0 mg/dL 12/25/23 09:35 Urine Ketones (Auto) Negative 12/25/23 09:35 Urine Blood (Auto) 0 Landry/uL 12/25/23 09:35 Urine Nitrite (Auto) Negative 12/25/23 09:35 Urine Bilirubin (Auto) 0 mg/dL 12/25/23 09:35 Urine Urobilinogen (Auto) 0.2 mg/dL 12/25/23 09:35 Leukocyte Esterase (Auto) 0 Remedios/uL 12/25/23 09:35 Assessment & Plan Assessment & Plan (1) Lower urinary tract symptoms: Code(s): R39.9 - Unspecified symptoms and signs involving the genitourinary system Category: Medical (2) Enlarged prostate: Code(s): N40.0 - Benign prostatic hyperplasia without lower urinary tract symptoms Category: Medical (3) BPH (benign prostatic hyperplasia): Code(s): N40.0 - Benign prostatic hyperplasia without lower urinary tract symptoms Category: Medical (4) Urinary frequency: Code(s): R35.0 - Frequency of micturition Category: Medical Plan In office urinalysis results reviewed with the patient and his daughter today. PVR 30 mL. Continue finasteride will decrease MWF Continue Flomax. Recent PSA results reviewed with the patient and his daughter today. Will obtain PSA in 1 year. Patient currently denies any bothersome urinary issues or concerns. He reports be happy with current voiding parameters. Follow-up in 1 year with lab and PVR; or sooner with any issues, concerns, and or questions. Orders: Orders AMB Urinalysis Automated Today Z13.9 - Encounter for screening, unspecified AMB Post Void Residual by ultrasound Today R39.9 - Unspecified symptoms and signs involving the genitourinary system Prostate Specific Antigen 1 Year N40.0 - Benign prostatic hyperplasia without lower urinary tract symptoms Medications: Changed From finasteride 5 mg PO DAILY 90 days 90 tabs 4RF N13.8 - Other obstructive and reflux uropathy, N40.1 - Benign prostatic hyperplasia with lower urinary tract symptoms, R33.9 - Retention of urine, unspecified To finasteride This is a decrease in dose. 5 mg PO .MWF 90 days 45 tabs 3RF N13.8 - Other obstructive and reflux uropathy, N40.1 - Benign prostatic hyperplasia with lower urinary tract symptoms, R33.9 - Retention of urine, unspecified Refilled tamsulosin 0.4 mg PO DAILY 90 days 90 caps 3RF Discontinued polyethylene glycol 3350 (Miralax) As directed by gastroenterology department at [facility] Discontinued Reason: Patient Completed Course 238 grams PO ONCE 238 grams 0RF Z12.11 - Encounter for screening for malignant neoplasm of colon bisacodyl (Dulcolax (bisacodyl)) take 2 tabs at noon the day before your colonoscopy Discontinued Reason: Patient Completed Course 10 mg (2 x 5 mg) PO ONCE 1 day 2 tabs 0RF Z12.11 - Encounter for screening for malignant neoplasm of colon Patient Instructions: The patient had an opportunity to ask questions regarding the treatment plan. All questions were answered. Physical exam, labs, and imaging were discussed and reviewed in detail. As well as risks, benefits, and discussion of treatment choices. No major barriers to understanding were identified. The patient expressed understanding and agreement with the above treatment plan. The patient was made aware they should contact our office by phone for worsening of their current condition, the appearance of new symptoms, or with any questions or concerns. Compliance is encouraged with any medications and follow up testing that is ordered. It is a privilege to be allowed the opportunity to participate in? your urological care.? Again, if you have any questions or concerns If you have any questions or concerns please do not hesitate to contact me. The office is [phone]. This note is constructed using voice recognition software. While every effort has been made to ensure accuracy synthetic gem press operator errors may have been included. Yours sincerely, BAILEY Edwards-DEMARCO Coding Level of Care Code Est Pt Level 3 (57602) Diagnoses Lower urinary tract symptoms R39.9 Enlarged prostate N40.0 BPH (benign prostatic hyperplasia) N40.0 Urinary frequency R35.0 CPT Codes Post Residual Void - PVR CPT Code: 66084-Tong Void Residual by ultrasound ([id number])
== END 2023-12-25 10:00 | disposition home or self-care (01) ==
PROVIDERS: PCP Internal Medicine; Visit Provider Nurse Practitioner Family
DX: R39.9 Unspecified symptoms and signs involving the genitourinary system (principal); N40.0 Benign prostatic hyperplasia without lower urinary tract symptoms; R35.0 Frequency of micturition; Z13.9 Encounter for screening, unspecified
CPT/HCPCS: 99213

== ENCOUNTER → 2023-12-25 09:28 | Outpatient (BNVA) | payer MEDICARE, SELFPAY | PROVIDERS: PCP Internal Medicine; Visit Provider Nurse Practitioner Family | DX: R39.9 Unspecified symptoms and signs involving the genitourinary system (principal); R97.20 Elevated prostate specific antigen [PSA]; N40.0 Benign prostatic hyperplasia without lower urinary tract symptoms; R35.0 Frequency of micturition | CPT/HCPCS: 51798; 81003; 99212 ==

== ENCOUNTER 2024-02-26 13:04 | Outpatient (REF) | payer MEDICARE, SELFPAY ==
[2024-02-26 16:52] LABS: Alanine Aminotransferase 23 U/L (0-40); Albumin Level 4.1 g/dL (3.5-5.0); Alkaline Phosphatase 76 U/L (39-117); Aspartate Amino Transferase 22 U/L (5-37); Bilirubin Direct 0.4 mg/dL (0.0-0.5); Bilirubin Total 1.2 mg/dL (0.0-1.0); Cholesterol 202 mg/dL (<200); HDL Cholesterol 56 mg/dL (>40); LDL Cholesterol Calculated 122 mg/dL (<100); Total Protein 6.7 g/dL (6.5-8.0); Triglycerides 124 mg/dL (<150)
[2024-02-26 17:03] LABS: Prostate Specific Antigen 1.42 ng/mL (<0.05-4.0)
[2024-02-26 18:37] LABS: Reflex LDLD? No
== END 2024-02-26 13:05 | disposition home or self-care (01) ==
LOC: HO.HHCL 13:04
PROVIDERS: Referring Provider Internal Medicine; Visit Provider Nurse Practitioner Family
DX: E78.00 Pure hypercholesterolemia, unspecified (principal); N40.0 Benign prostatic hyperplasia without lower urinary tract symptoms; Z12.5 Encounter for screening for malignant neoplasm of prostate
CPT/HCPCS: 36415; 80061; 80076; 84153

== ENCOUNTER 2024-07-07 11:17 | Outpatient (REF) | payer MEDICARE, SELFPAY ==
[2024-07-07 13:40] LABS: Anion Gap 10 (12-20); Blood Urea Nitrogen 18 mg/dL (9-16); Calcium 9.1 mg/dL (8.4-10.2); Carbon Dioxide 28 mmol/L (22-29); Chloride 106 mmol/L (96-108); Estimated Glomerular Filt Rate > 60; Glucose Random 84 mg/dL (60-115); Potassium 4.5 mmol/L (3.3-5.1); Sodium 139 mmol/L (135-145)
[2024-07-07 13:41] LABS: Estimated Average Glucose 114 mg/dL; Hemoglobin A1C 130.9209 umol/L; Hemoglobin A1c % 5.6 % (<6.0); Total Hemoglobin (HGBA1C) 3433.0755 umol/L
[2024-07-07 14:21] LABS: TSH reflex Free T4 1.53 uIU/mL (0.32-4.0)
== END 2024-07-07 11:18 | disposition home or self-care (01) ==
LOC: HO.HHCL 11:17
PROVIDERS: Visit Provider Internal Medicine
DX: Z13.1 Encounter for screening for diabetes mellitus (principal); R41.9 Unspecified symptoms and signs involving cognitive functions and awareness
CPT/HCPCS: 36415; 80048; 83036; 84443

== ENCOUNTER 2024-08-25 12:57 | Outpatient (REF) | payer MEDICARE, SELFPAY ==
[2024-08-25 13:18] LABS: Appearance Urine Clear; Color Urine Yellow; Glucose Urine UA Negative (Negative); Leukocyte Esterase Urine Negative (Negative); Nitrite Urine Negative (Negative); PH 7.5 (5.0-9.0); Urine Blood Negative (Negative); Urine Ketones Negative (Negative); Urine Protein Negative (Neg-Trace)
--- OUTSIDE RECORDS SUMMARY | 2024-08-25 14:06 | XMS_ITS | Encounter Summary ---
Author Organization [employer] Address [address] [place] [address] Care Team Providers Care Massage Operator Name Role Phone Apple Gamboa MD Primary Care Provider + Reason for Visit * Reason Onset Date Comments Chart prep 08/21/2024 Encounter Details Date Type Department Care Team (Late st Contact Info) Description 08/21/[address] [facility] MEDICINE [address] [place], [place] [id number] Deepa Noe MA Chart prep Social History Tobacco Use Types Packs/Day Years Used Date Smoking Tobacco: Never Smokeless Tobacco: Never Alcohol Use Standard Drinks/Week Comments Not Currently 0 (1 standard drink = 0.6 oz pur e alcohol) Depression Answer Date Recorded Patient Health Questionnaire-9 Score 0 07/07/2024 Patient Health Questionnaire-9 Score 0 07/07/2024 Last PHQ-9: Questionnaire Data Not on file 1 09/07/2023 Housing Stability Answer Date Recorded What is your housing situation today? I have lazaro gtz 03/03/[address] you li ve. Do you have problems with any of the following? None of the above 03/03/2024 Food Insecurity Answer Date Recorded Within the past 12 months, y ou worried that your food would run out before you got money to buy more: Never True 03/03/2024 Within the past 12 months,th e food you bought just didn't last and you didn't have enough money to get more: Never True Transportation Answer Date Recorded In the past 12 months, has l ack of transportation kept you from medical appts, meetings, work or from getting things needed for daily living? No 03/03/2024 Utilities Answer Date Recorded In the past 12 months, has t he electric, gas, oil or water company threatened to shut off services in your home? No 03/03/2024 Depression Answer Date Recorded Patient Health Questionnaire-2 Score 0 07/07/2024 Internet Access Answer Date Recorded Internet Access Q1 No 03/16/2024 Internet Access Q2 I do not want or need it 08/2023 Sex and Gender Information Value Date Recorded Sex Assigned at Male 05/14/2022 10:37 AM EDT Legal Sex Male 10:37 AM EDT Gender Identity Male 05/14/2022 10:37 AM EDT Sexual Orientation Straight 05/14/2022 10 :37 AM EDT documented as of this encounter Miscellaneous Notes * Telephone Encounter - Deepa Noe MA - 08/21/2024 3:27 PM EST Chart Prep Labs: done Images: done Vaccines due: yes Referrals: complete Screenings: Up to date Overdue care gaps: Up to date documented in this encounter Plan of Treatment Not on file documented as of this encounter Visit Diagnoses Not on filedocumented in this encounter Additional Health Concerns Assessment Noted Time PHQ-9 Depression Total Score: 0 07/07/20 24 10:21 AM EST documented as of this encounter Care Teams Massage Operator Relationship Specialty Start Date End Date Apple Gamboa MD [address] [place] [address] PCP - General Family Medicine 03/25/20 documented as of this encounter
--- OUTSIDE RECORDS SUMMARY | 2024-08-25 14:06 | XMS_ITS | Encounter Summary ---
Author Organization [employer] Address [address] [place] [address] Care Team Providers Care Bed And Breakfast Operator Name Role Phone Apple Gamboa MD Primary Care Provider + Reason for Visit * Reason Comments Med Change Request Encounter Details Date Type Department Care Team (Late st Contact Info) Description 08/18/2024 Refill [facility] MEDICINE [address] [place], [place] [phone] Apple Gamboa MD [address] [place], [place] [phone] Social History Tobacco Use Types Packs/Day Years [...] AM EDT documented as of this encounter Plan of Treatment Not on file documented as of this encounter Visit Diagnoses Not on filedocumented in this encounter Additional Health Concerns Assessment Noted Time PHQ-9 Depression Total Score: 0 07/07/20 10:21 AM EST documented as of this encounter Care Teams Bed And Breakfast Operator Relationship Specialty Start Date End Date Apple Gamboa MD [address] [place] [phone] PCP - General Family Medicine 03/25/20 documented as of this encounter
--- OUTSIDE RECORDS SUMMARY | 2024-08-25 14:06 | XMS_ITS | Encounter Summary ---
Author Organization [employer] Address [address] [place] [address] Care Team Providers Care Tug Master Name Role Phone Apple Gamboa MD Primary Care Provider + Reason for Visit * Reason Comments Lab Orders Encounter Details Date Type Department Care Team (Late st Contact Info) Description 08/25/2024 9:15 AM EST Office Visit [facility] MEDICINE [address] [place], [place] [phone] Apple Gamboa MD [address] [place], [place] [phone] Cognitive impairment (Primary Dx); Pure hypercholesterolemia; Elevated blood pressure reading Social History Tobacco Use Types Packs/Day Years Used Date Smoking Tobacco: Never Smokeless Tobacco: Never Tobacco Cessation:Counseling Given: Not Answered Alcohol Use Standard Drinks/Week Comments Not Currently [...] the past 12 months, has t he [email or web address], gas, oil or water company threatened to [...] AM EDT documented as of this encounter Last Filed Vital Signs Vital Sign Reading Time Taken Comments Blood Pressure 154/77 08/25/2024 9:11 AM EST Pulse 56 08/25/2024 9:11 AM EST Temperature 35.5 ??C (95.9 ??F) 08/25/2024 9:11 AM ES T Respiratory Rate 12 08/25/2024 9:11 AM EST Oxygen Saturation 100% 08/25/2024 9:11 AM EST Inhaled Oxygen Concentration - - Weight 78.6 kg (173 lb 4 oz) 08/25/2024 9:11 AM EST Height 157.5 cm (5' 2 ) 08/25/2024 9:11 AM EST Body Mass Index 31.69 08/25/2024 9:11 AM EST documented in this encounter Plan of Treatment Not on file documented as of this encounter Procedures Procedure Name Priority Date/Time Associated Diagnosis Comments POCT URINALYSIS DIPSTICK Routine 08/25/2024 9:49 AM EST Elevated blood pressure reading URINALYSIS WITH REFLEX MICROSCOPIC Routine 08/25/2024 12:00 AM EST Elevated blood pressure reading documented in this encounter Results * POCT Urinalysis (08/25/2024 9:49 AM EST) Color, UA Yellow Clarity, UA Clear Glucose, UA Negative Bilirubin, UA Negative Ketones, UA Negative Spec Grav, UA 1.015 Blood, UA Negative Negative, None Detected pH, UA 7.5 Protein, UA Negative Urobilinogen, UA 0.2 Leukocytes, UA Negative Negative, Rare, Trace Nitrite, UA Negative Negative, None Detected Appearance, UA clear QC Media Lot # [id number] Lot# Expiration Date Urine 08/25/2024 9:49 AM EST Apple Gamboa MD POINT OF CARE TEST ENTER /EDIT ORDERABLES Final Result * Urinalysis with reflex microscopic (08/25/2024 12:00 AM EST) Color Urine Yellow [facility] Appearance Urine Clear [facility] PH 7.5 5.0 - 9.0 [facility] Glucose Urine UA Negative Negative mg/dL [facility] Urine Blood Negative Negative [facility] Specific [place]ult[place] - Urine 1.010 1.005 - 1.025 [facility] Urine Protein Negative Neg-Trace mg/dL [facility] Urine Ketones Negative Negative mg/dL [facility] Nitrite Urine Negative Negative [facility] Leukocyte Esterase Urine Negative Negative [facility] Urine (Urine, Random) 08/25/2024 08/25/2024 Narrative [facility] - 08/25/2024 1:20 PM EST Urine, Clean Catch Apple Gamboa MD LAB URINE ORDERABLES Fin al Result [facility] [address] [place] [phone] documented in this encounter Visit Diagnoses Diagnosis Cognitive impairment- Primary Unspecified persistent mental disorders due to conditions classified elsewhere Pure hypercholesterolemia Elevated blood pressure reading Elevated blood pressure reading without diagnosis of hypertension documented in this encounter Additional Health Concerns Assessment Noted Time PHQ-9 Depression Total Score: 0 07/07/20 24 10:21 AM EST documented as of this encounter Care Teams Tug Master Relationship Specialty Start Date End Date Apple Gamboa MD [address] [place] [address] PCP - General Family Medicine 03/25/20 documented as of this encounter
--- OUTSIDE RECORDS SUMMARY | 2024-08-25 14:06 | XMS_ITS | Encounter Summary ---
Author Organization [employer] Address [address]t [place] [address] Care Team Providers Care Lightning Protection Installer Name Role Phone Apple Gamboa MD Primary Care Provider + Reason for Visit * Reason Onset Date Comments Med Refill 08/13/2024 Encounter Details Date Type Department Care Team (Late st Contact Info) Description 08/13/2024 Refill [facility] MEDICINE 230 [place], [place] [phone] Apple Gamboa MD 230 [place], [place] [phone] Cognitive impairment Social History Tobacco Use Types Packs/Day Years [...] documented as of this encounter Visit Diagnoses Diagnosis Cognitive impairment Unspecified persistent mental disorders due to conditions classified elsewhere documented in this encounter Additional Health Concerns Assessment Noted Time PHQ-9 Depression Total Score: 0 07/07/20 24 10:21 AM EST documented as of this encounter Care Teams Lightning Protection Installer Relationship Specialty Start Date End Date Apple Gamboa MD [address] [place] [phone] PCP - General Family Medicine 03/25/20 documented as of this encounter
--- OUTSIDE RECORDS SUMMARY | 2024-08-25 14:07 | XMS_ITS | Clinical Summary ---
Author Organization [employer] [facility] Address [address] [place] [address] Care Team Providers Care Admissions Consultant Name Role Phone Jony Durand MD Primary Care Provider Social History Tobacco Use Types Packs/Day Years Used Date Smoking Tobacco: Never Assessed Sex and Gender Information Value Date Recorded Sex Assigned at Not on file Legal Sex Male 2:40 AM EST Gender Identity Not on file Sexual Orientation Not on file Plan of Treatment Health Maintenance Due Date Last Done Comments DTaP,Tdap,and Td Vaccines (1 - Tdap) 10[birth year]03/1952 Pneumococcal Vaccine: 50+ Ye ars (1 of 1 - PCV) 10/03/1997 Zoster Vaccines (1 of 2) 10/03/1997 RSV Immunization Patients 60 + Years Old (1 - 1-dose 75+ series) 10/03/2022 COVID-19 Vaccine ( - 2023-2 5 season) 2024 Influenza Vaccine (#1) 2024 HIB Vaccines Aged Out No longer eligi ble based on patient's age to complete this topic HPV Vaccines Aged Out No longer eligi ble based on patient's age to complete this topic Hepatitis A Vaccines Aged Out No long er eligible based on patient's age to complete this topic Hepatitis B Vaccines Aged Out No long er eligible based on patient's age to complete this topic IPV Vaccines Aged Out No longer eligi ble based on patient's age to complete this topic MMR Vaccines Aged Out No longer eligi ble based on patient's age to complete this topic Meningococcal ACWY Vaccine Aged Out N o longer eligible based on patient's age to complete this topic Meningococcal B Vacine Aged Out No lo nger eligible based on patient's age to complete this topic RSV Immunization Patients Un nancy 20 months Aged Out No longer eligible b ased on patient's age to complete this topic Varicella Vaccines Aged Out No longer eligible based on patient's age to complete this topic Care Teams Admissions Consultant Relationship Specialty Start Date End Date Jony Durand MD [address] [place] [phone] PCP - General Internal Medicine 11/14/15
--- OUTSIDE RECORDS SUMMARY | 2024-08-25 14:07 | XMS_ITS | Encounter Summary ---
Author Organization [employer] Address [address] [place] [address] Care Team Providers Care Animal Husbandry Manager Name Role Phone Apple Gamboa MD Primary Care Provider + Encounter Details Date Type Department Care Team (Late st Contact Info) Description 01/02/[address] [facility] MEDICINE 230 [place], [place] [phone] Apple Gamboa MD 230 [place], [place] [phone] Social History Tobacco Use Types Packs/Day Years Used Date Smoking Tobacco: Never Smokeless Tobacco: Never Alcohol Use Standard Drinks/Week Comments Not Currently 0 (1 standard drink = 0.6 oz pur e alcohol) Depression Answer Date Recorded Patient Health Questionnaire-2 Score 0 09/26/2022 Sex and Gender Information Value Date Recorded Sex Assigned at Male 05/14/2022 10:37 AM EDT Legal Sex Male 10:37 AM EDT Gender Identity Male 05/14/2022 10:37 AM EDT Sexual Orientation Straight 05/14/2022 10 :37 AM EDT COVID-19 Exposure Response Date Recorded In the last 10 days, have yo u been in contact with someone who was confirmed or suspected to have Coronavirus/COVID-19? No / Unsure 12/14/2022 11:39 AM EDT documented as of this encounter Plan of Treatment Not on file documented as of this encounter Visit Diagnoses Not on filedocumented in this encounter Care Teams Animal Husbandry Manager Relationship Specialty Start Date End Date Apple Gamboa MD [address] [place] [phone] PCP - General Family Medicine 03/25/20 documented as of this encounter
--- OUTSIDE RECORDS SUMMARY | 2024-08-25 14:07 | XMS_ITS | Encounter Summary ---
Author Organization [employer] Address [address] [place] [address] Care Team Providers Care Logistics Analyst Name Role Phone Apple Gamboa MD Primary Care Provider + Reason for Visit * Reason Onset Date Comments Error 11/19/2023 Encounter Details Date Type Department Care Team (Late st Contact Info) Description 11/19/2023 Telephone [facility] MED[facility]INE 230 [place], [place] [phone] Apple Gamboa MD 230 [place], [place] [phone] Error Social History Tobacco Use Types Packs/Day Years Used Date Smoking Tobacco: Never Smokeless Tobacco: Never Alcohol Use Standard Drinks/Week Comments Not Currently 0 (1 standard drink = 0.6 oz pur e alcohol) Housing Stability Answer Date Recorded What is your housing situation today? I have lazaro gtz 05/25/[address] you li ve. Do you have problems with any of the following? None of the above 05/25/2023 Food Insecurity Answer Date Recorded Within the past 12 months, y ou worried that your food would run out before you got money to buy more: Never True 05/25/2023 Within the past 12 months,th e food you bought just didn't last and you didn't have enough money to get more: Never True 05/2023 Transportation Answer Date Recorded In the past 12 months, has l ack of transportation kept you from medical appts, meetings, work or from getting things needed for daily living? No 05/25/2023 Utilities Answer Date Recorded In the past 12 months, has t he electric, gas, oil or water company threatened to shut off services in your home? No 05/25/2023 Depression Answer Date Recorded Patient Health Questionnaire-2 [...] on filedocumented in this encounter Care Teams Logistics Analyst Relationship Specialty Start Date End Date Apple Gamboa MD [address] [place] [phone] PCP - General Family Medicine 03/25/20 documented as of this encounter
--- OUTSIDE RECORDS SUMMARY | 2024-08-25 14:07 | XMS_ITS | Encounter Summary ---
Author Organization [employer] Address [address] 7[address] [place] [address] Care Team Providers Care Training Generalist Name Role Phone Apple Gamboa MD Primary Care Provider + Encounter Details Date Type Department Care Team (Late st Contact Info) Description 12/11/2023 Orders Only [facility] MED[facility]INE 230 [place], [place] [phone] Provider, MD Pravin Social History Tobacco Use Types Packs/Day Years Used Date Smoking Tobacco: Never Smokeless Tobacco: Never Alcohol Use Standard Drinks/Week Comments Not Currently 0 (1 standard drink = 0.6 oz pur e alcohol) Housing Stability Answer Date Recorded What is your housing situation today? I have lazaroshelbi gtz 05/25/[address] you [...] the past 12 months, has t he [employer], [employer], oil or water company threatened to shut [...] Procedure Name Priority Date/Time Associated Diagnosis Comments HM COLONOSCOPY Routine 03/10/2021 7:33 AM EDT documented in this encounter Results * Hm Colonoscopy (03/10/2021 7:33 AM EDT) Historical Provider HEALTH MAINTENANCE Final Result documented in this encounter Visit Diagnoses Not on filedocumented in this encounter Care Teams Training Generalist Relationship Specialty Start Date End Date Apple Gamboa MD [address] [place] [phone] PCP - General Family Medicine 03/25/20 documented as of this encounter
--- OUTSIDE RECORDS SUMMARY | 2024-08-25 14:07 | XMS_ITS | Clinical Summary ---
Author Organization [facility] Address [address] [place] [address] Care Team Providers Care Pillowcase Folder Name Role Phone Unavailable Primary Care Provider Unavailabl e Social History Tobacco Use Types Packs/Day Years Used Date Smoking Tobacco: Never Assessed Sex and Gender Information Value Date Recorded Sex Assigned at Not on file Gender Identity Not on file Sexual Orientation Not on file Plan of Treatment Health Maintenance Due Date Last Done Comments Hepatitis C Virus Screening 1945 DTaP/Tdap/Td Vaccines (1 - Tdap) 10/03/1966 Pneumococcal Vaccines 50+ (1 of 1 - PCV) 10/03/1997 Zoster (Shingles) Vaccine (1 of 2) 10/03/1997 RSV Vaccine 60 years and old er and Patients (1 - 1-dose 75+ series) 10/03/2022 COVID-19 Vaccine ( - 2023-2 5 season) 2024 Hepatitis B Vaccines Aged Out No long er eligible based on patient's age to complete this topic
--- OUTSIDE RECORDS SUMMARY | 2024-08-25 14:07 | XMS_ITS | Encounter Summary ---
Author Organization [employer] Address [address] 7t [place] [address] Care Team Providers Care Extension Associate Name Role Phone Apple Gamboa MD Primary Care Provider + Reason for Visit * Reason Onset Date Comments Referral 10/14/2023 Encounter Details Date Type Department Care Team (Late st Contact Info) Description 10/14/2023 Telephone [facility] MEDICINE 230 [place], [place] [phone] Apple Gamboa MD 230 [place], [place] [phone] Referral Social History Tobacco Use Types Packs/Day Years [...] encounter Miscellaneous Notes * Telephone Encounter - Celine Fernandes - 10/15/2023 2:56 PM EDT Referral, notes and other documents mailed to pt for Neurology scheduling. * Telephone Encounter - Robert Frankel - 10/14/2023 11:13 AM EDT Tc from the patients daughter calling in regards to the referral for Neurology states does not wantto be seen with Dr. Mo or and would like the referral sent to her so she can schedule due to work schedule documented in this encounter Plan of Treatment Not on file documented as of this encounter Visit Diagnoses Not on filedocumented in this encounter Care Teams Extension Associate Relationship Specialty Start Date End Date Apple Gamboa MD [address] [place] [phone] PCP - General Family Medicine 03/25/20 documented as of this encounter
--- OUTSIDE RECORDS SUMMARY | 2024-08-25 14:07 | XMS_ITS | Encounter Summary ---
Author Organization [employer] Address [address] [facility] [address] [place] [address] Care Team Providers Care Digital Account Executive Name Role Phone Apple Gamboa MD Primary Care Provider + Reason for Visit * Reason Onset Date Comments Nurse Triage 06/10/2023 Encounter Details Date Type Department Care Team (Late st Contact Info) Description 06/10/2023 Telephone [facility] MEDICINE 230 [place], [place] [phone] Apple Gamboa MD 230 [place], [place] [phone] Nurse Triage Social History Tobacco Use Types Packs/Day Years [...] encounter Miscellaneous Notes * Telephone Encounter - Isha Rose RN - 06/10/2023 3:23 PM EST Triage call with Pt daughter , AGUSTIN Katz, reports Pt has been reporting right arm pain for last 2 weeks or more. Pt is able to use arm and can lift but, has pain with all motion. Pt has difficulty lifting arm to shoulder level. Pt reports that pain comes from shoulder and radiates down arm , denies numbness/tingling. Requesting apt because of daughter work schedule unable to bring to [employer]. Apt with Dr. Mcdonald 1130am 06/19/23. Protocol Used: Arm Pain (Adult) Protocol-Based Disposition: See in Office or Video Visit within 2 Weeks Video visit not offered Positive Triage Question: * Mild pain (e.g., does not interfere with normal activities) and present > 7 days * All higher-acuity triage questions were negative Care Advice Discussed: * Pain Medicines * Pain Medicines - Extra Notes and Warnings * Reasons To Call Back - Moderate pain (e.g., interferes with normal activities) lasts more than 3 days - Mild pain lasts more than 7 days - Arm swelling occurs - Signs of infection occur (e.g., spreading redness, warmth, fever) - You become worse * Use a Cold Pack for Pain * Use Heat After 48 Hours for Pain * Telephone Encounter - Robert Frankel - 06/10/2023 2:28 PM EST Symptom: Right Arm Pain - Not From Injury Outcome: Schedule an urgent appointment (within 1 hour) or talk to a nurse or provider soon Reason: Can't use the arm normally The caller accepted this outcome documented in this encounter Plan of Treatment Not on file documented as of this encounter Visit Diagnoses Not on filedocumented in this encounter Care Teams Digital Account Executive Relationship Specialty Start Date End Date Apple Gamboa MD [address] [place] [phone] PCP - General Family Medicine 03/25/20 documented as of this encounter
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
--- OUTSIDE RECORDS SUMMARY | 2024-08-25 14:07 | XMS_ITS | Encounter Summary ---
Author Organization [employer] Address [address] [place] [address] Care Team Providers Care Customer Account Manager Name Role Phone Apple Gamboa MD Primary Care Provider + Encounter Details Date Type Department Care Team (Latest Contact Info) Description 08/25/2024 Travel Social History Tobacco Use Types Packs/Day Years [...] documented as of this encounter Care Teams Customer Account Manager Relationship Specialty Start Date End Date Apple Gamboa MD [address] [place] [id number] PCP - General Family Medicine 03/25/20 documented as of this encounter
--- OUTSIDE RECORDS SUMMARY | 2024-08-25 14:07 | XMS_ITS | Encounter Summary ---
Author Organization [employer] Address [address] [place] [address] Care Team Providers Care Batch Maker Name Role Phone Apple Gamboa MD Primary Care Provider + Encounter Details Date Type Department Care Team (Late st Contact Info) Description 07/27/2024 Telephone [facility] [address] [place], [place] [phone] Apple Gamboa MD [address] [place], [place] [phone] Social History Tobacco Use Types Packs/Day Years [...] your housing situation today? I have lazaro tresa 03/03/[address] you li [...] documented as of this encounter Care Teams Batch Maker Relationship Specialty Start Date End Date Apple Gamboa MD [address] [place] [id number] PCP - General Family Medicine 03/25/20 documented as of this encounter
--- OUTSIDE RECORDS SUMMARY | 2024-08-25 14:07 | XMS_ITS | Clinical Summary ---
Author Organization [employer] Address [address] [place] [address] Care Team Providers Care Kinesiotherapist Name Role Phone Apple Gamboa MD Primary Care Provider + Allergies No known active allergies Medications * This document contains information received from the source organization and may not represent a complete record from that organization. hydrocortisone 0.5 % creamIndications:Dry skin dermatitis Apply topically 2 times daily. 56 g 2022 Active tamsulosin (Flomax) 0.4 MG 24 hr capsuleIndications:Bra[place] ign prostatic hyperplasia with urinary frequency Take 1 capsule (0.4 mg) by mouth in the morning. 30 capsule 2 2022 Active finasteride (Proscar) 5 MG tablet 2022 Active Diclofenac Sodium 1 % gel Apply 1 Application topically if needed in the morning, at noon, in the evening, and at bedtime (pain). 100 g 1 2022 Active Lidocaine 0.5 % gel Apply 1 Application topically if needed in the morning, at noon, in the evening, and at bedtime (pain). 170 g 1 2022 Active QUEtiapine (SEROquel) 25 MG tablet TAKE 1/2 OR 1 TABLET BY MOUTH AT BEDTIME , HOLD FOR EXCESSIVE SEDATION THE NEXT DAY. 30 tablet 1 2024 Active donepezil (Aricept) 5 MG tabletIndications:Cogn itive impairment TAKE 1 TABLET BY MOUTH TWICE A DAY 60 tablet 11 2024 Active atorvastatin (Lipitor) 40 MG tabletIndications:Pure hypercholesterolemia TAKE 1 TABLET BY MOUTH EVERY NIGHT BEFORE BEDTIME 30 tablet 11 2024 Active Blood Pressure Monitoring (Blood Pressure Cuff) misc Use daily as prescribed 1 each 2024 Active atorvastatin (Lipitor) 40 MG tabletIndications:Pure hypercholesterolemia TAKE 1 TABLET BY MOUTH EVERY MORNING 30 tablet 5 08/25 Discontinued( Reorder (will not trigger notification to Pharmacy)) donepezil (Aricept) 5 MG tabletIndications:Cogn itive impairment 5mg po qpm x 2w, then 5mg po bid thereafter 60 tablet 11 08/13 Discontinued( Reorder (will not trigger notification to Pharmacy)) QUEtiapine (SEROquel) 25 MG tablet Take 1 tablet (25 mg) by mouth at bedtime. Take half or 1 tablet po at bedtime , hold for excessive sedation the next day. 30 tablet 08/04 Discontinued Active Problems Problem Noted Date Diagnosed Date Elevated blood pressure reading 08/25/2024 Neurocognitive disorder 12/04/2023 Assessment & Plan (07/07/2024 12:50 PM EST): Pt has vascular Dementia progressing more over this past year. He currently seems to be downing effect. Rule out organic conditions, order labs. Pt is not taking Aricept or Namenda, but refill profile. Will start Seroquel 12.5 mg QHS at night, pt agreed to take it today. Order home safety evaluation, may need to increase TECHNICAL ILLUSTRATOR. I discussed with his daughter the importance of keeping him safe, disconnect microwave and stove for now and avoid driving. FU in 3-4 weeks to review labs. Pt agreed to receive the Covid and Influenza immunizations. Assessment & Plan (03/03/2024 10:00 AM EDT): - pt has moderate memory impairment and needs assistance for ADLs to improve safety at home as he lives with his son who works full time staff interpreter outside of the home, will contact home care services - reminded him the importance of taking Aricept BID - refer to neurology at [facility] (Dr. Renae, Vidya, or Yaron were requested by pt) - f/u with me in 3 months Assessment & Plan (12/04/2023 3:15 PM EDT): - pt has moderate limitations for his ADLs, he has to take medications and sometimes does not follow instructions of family members - stressed importance of taking Aricept daily, we may consider VNA to monitor medication(Aricept) compliance and maybe TECHNICAL ILLUSTRATOR. His children will stop by several times per week and help him with this - seems to be safe at home at this time, advised the family to put an ID bracelet on the pt - f/u with me in 3 months, may consider home assistance -refer to Neurology, patient didn't want o fu with Dr Mo or [facility] neurology. Bilateral hip joint arthritis 12/04/2023 Assessment & Plan (12/04/2023 11:12 AM EDT): - pt had X-Ray of hips on 11/22/23 that showed moderate TJD + exostosis above the xxx - pt is barely symptomatic, will continue with Tylenol PRN - declined PT , discussed with pt and family regarding fall prevention Abdominal wall hernia 12/04/2023 Assessment & Plan (12/04/2023 11:09 AM EDT): - moderately large, pt does not report any significant symptoms and is not particularly eager to have surgery at this time - discussed with pt and daughter about red flags such as vomiting, severe constipation, change in skin color around the hernia or pain to re consult SHEREE - advised not to gain weight - f/u PRN Arthritis of shoulder region, right 06/26/2023 Assessment & Plan (06/26/2023 12:39 PM EST): Significantly improving with topical medications Discuss with patient regarding other treatment options in case symptoms reoccur. Reconsult PRN Muscle pain 06/19/2023 Assessment & Plan (06/19/2023 12:51 PM EST): Potentially due to new demand from dog walking Stretching Lidocaine/diclofenac gel Benign prostatic hyperplasia with urinary freque ncy 12/14/2022 Assessment & Plan (03/03/2024 10:01 AM EDT): - doing well on low dose Proscar and Flomax - continue to f/u closely with neurology Assessment & Plan (06/26/2023 12:36 PM EST): Patient and daughter will confirm that he is taking Flomax Patient symptoms seems to be improving F/u with Neurology in 2023 Assessment & Plan (12/14/2022 2:50 PM EDT): Start Flomax at bedtime, warned re orthostatism. FU with urology. New daily persistent headache 12/14/2022 Assessment & Plan (12/14/2022 2:45 PM EDT): New onset, no other neurological deficits, MRI last year didn't show focal findings. Recommended to use tylenol prn, increase fluid intake, healthy eating. Re consult prn if sxs seem to get worse within next month, may repeat MRI. Left hip pain 12/14/2022 Assessment & Plan (03/03/2024 9:58 AM EDT): - pt has OA and seems to be doing well with OTC meds - will call back PRN when symptoms do not improve - will refer to PT Assessment & Plan (12/14/2022 2:46 PM EDT): It seems to be OA hip. Use tylenol + diclofenac gel bid x 1w then prn. I gave him info re strengthening exercises at home, heat to affected area. Get X rays of sxs do not improve with above rx and consider PT. Patient will call back prn Adjustment disorder with anxiety 12/14/2022 Assessment & Plan (12/14/2022 2:49 PM EDT): Most likely related to recent detention, change on daily routine + hx parents following detention that must be concerning for him Reassurance, encouraged to establish new routines, exercise daily, healthy eating, avoid watching news and/or too much social media, strengthen family relationships, look to start a hobby. Fu prn if sxs do not improve, consider referral to counseling. Dry skin dermatitis 12/14/2022 Assessment & Plan (12/14/2022 2:47 PM EDT): On his back. Use lac hydrin cream + OTC hydrocortisone cream daily x 1w then prn. Encourage increase water intake Pure hypercholesterolemia 12/14/2022 Assessment & Plan (12/04/2023 11:13 AM EDT): - pt not compliant with medications - discussed with pt's family regarding the importance of taking medications daily - check lipids and LFT's prior to next appointment Assessment & Plan (12/14/2022 3:00 PM EDT): Start Atorvastatin 40 mg at bedtime to reduce CV risk. Recommended moderate amount of exercise and increased consumption of fruit, vegetables, fish and high fiber foods. We discussed about avoiding consumption of highly saturated fats or trans fats. FU lipids in 6m Cognitive impairment 09/26/2022 Overview (02/20/2023): Brain MRI on 08/2021 showed cortical atrophy and WM Microvascular changes. [facility] Assessment & Plan (06/26/2023 3:39 PM EST): Seems to have mild to modern dementia, some parts of the neuropsychological test show decrease on executive function. He is to f/u with Neuology next month. Start Aricept 5mg/d x 2w then 5mg bid thereafter and fu with me in 6w to continue adjusting med if tolerated. I recommend to have a more accurate neuropsychological test completed in his own language so that we can fully evaluate his executive functiononing. I Will refer to Katey Louis in [facility]. Assessment & Plan (09/26/2022 10:31 AM EDT): pt has mild microvascular changes on brain MRI FU closely by neurology, neuropsychological test is pending discussed with pt and daughter regarding limit driving especially long distances, made them aware about risk of accidents. Pt is working full time staff interpreter, it is his desire to remain fully functional as much as he can fu results of neuropsychological testing Syncope 09/26/2022 Assessment & Plan (09/26/2022 10:27 AM EDT): Secondary to hypotension in the setting of a GI virus. Discussed with pt importance of proper routine hydration. Preventative health care 09/26/2022 Assessment & Plan (09/26/2022 10:27 AM EDT): Colonosocpy results reviewed today, next one due 02/2026 declined Covid influenza, and zoster iz. FU in 3 months. Weight loss 09/24/2022 Rash 09/24/2022 Positive RPR test 09/24/2022 Oropharyngeal dysphagia 09/24/2022 Pain in throat 09/24/2022 Memory impairment 09/24/2022 Assessment & Plan (12/14/2022 2:58 PM EDT): Seen by neurology, has mild cerebral atrophy/microvascular changes. FU with neurology To review neuropsychological test. Counseled to work on puzzles, sodoku, crosswords, increase exercise. Lower urinary tract symptoms 09/24/2022 Assessment & Plan (09/26/2022 10:28 AM EDT): R/o BPH refer to urologist History of COVID-19 09/24/2022 Concussion with less than 1 hour loss of conscio usness 09/24/2022 Apnea 09/24/2022 Abdominal bloating 09/24/2022 Encounters * This document contains information received from the source organization and may not represent a complete record from that organization. Date Type Department Care Team Description 08/25/2024 9:15 AM EST Office Visit [facility] [address] [place] [address] Apple Gamboa MD Cognitive impairment (Primary Dx); Pure hypercholesterolemia; Elevated blood pressure reading 08/25/2024 Travel 08/21/2024 Telephone [facility] [address] [place] [address] Deepa Noe MA Chart prep 08/18/2024 Refill [facility] [address] [place] [address] Apple Gamboa MD 08/13/2024 Refill [facility] [address] [place] [phone] Apple Gamboa MD Cognitive impairment 08/03/2024 Refill [facility] [address] [place] [phone] Apple Gamboa MD 07/27/[address] [address] Apple Gamboa MD 07/23/[address] [address] Apple Gamboa MD 07/09/[address] [address] Apple Gamboa MD Med Refill (Seroquel) 07/09/[address] [address] Apple Gamboa MD Stable Lab Letter 07/09/[address] [address] Jessica Song, [facility] 07/07/2024 10:30 AM EST Office Visit [address] [address] Apple Gamboa MD Neurocognitive disorder (Primary Dx); Encounter for immunization; Cognitive impairment; Adjustment disorder with anxiety 07/07/2024 Travel 07/06/[address] [address] Apple Gamboa MD from Last 3 Months Immunizations Name Administration Dates Next Due Influenza injectable quadrivalent preservative f ree 06/26/2023 Influenza, High Dose Seasonal, Preservative Free 07/07/2024 Pfizer Covid-19 Vaccine 12+ 07/07/2024 Social History Tobacco Use Types Packs/Day Years [...] Orientation Straight 05/14/2022 10 :37 AM EDT Last Filed Vital Signs Vital Sign Reading [...] Mass Index 31.69 08/25/2024 9:11 AM EST Plan of Treatment Health Maintenance Due Date Last Done Comments Alcohol/Substance Use Screening 1957 Hepatitis C Screening 10/03/1965 DTaP/Tdap/Td Vaccines (1 - Tdap) 10/03/1966 Pneumococcal Vaccine: 50+ Years (1 of 1 - PCV) 10/03/1997 Zoster Vaccines (1 of 2) 10/03/1997 RSV Patients and Patients Aged 60 years or older (1 - 1-dose 75+ series) 10/03/2022 SDOH Screening 03/03/2025 03/03/2024 Depression Screening 07/07/2025 07/07/2024, 07/07/2024 Tobacco Screening 08/25/2025 08/25/2024 Lipid Panel 02/25/2029 02/26/2024, 12/03/2022, 04/01/2020 Colonoscopy Discontinued 03/10/2021 Colorectal Cancer Screening Discontinued COVID-19 Vaccine Completed 07/07/2024, 05/04/2021 Influenza Vaccine Completed 07/07/2024, 06/26/2023 CT Colonography Discontinued FIT DNA/Cologuard Discontinued FIT Discontinued FOBT Discontinued HIB Vaccines Aged Out No longer eligi [...] patient's age to complete this topic Meningococcal Vaccine Aged Out No barbara josep eligible based on patient's age to complete this topic RSV under 20 months Aged Out No longe r eligible based on patient's age to complete this topic Rotavirus Vaccines Aged Out No longer eligible based on patient's age to complete this topic Sigmoidoscopy Discontinued Procedures Procedure Name Priority Date/Time Associated Diagnosis Comments POCT URINALYSIS DIPSTICK Routine 08/25/2024 9:49 AM EST Elevated blood pressure reading URINALYSIS WITH REFLEX MICROSCOPIC Routine 08/25/2024 12:00 AM EST Elevated blood pressure reading HEMOGLOBIN A1C Routine 07/07/2024 11:19 AM EST Neurocognitive disorder TSH W/REFLEX TO FT4 Routine 07/07/2024 11:19 AM EST Neurocognitive disorder BASIC METABOLIC PANEL Routine 07/07/2024 11:19 AM EST Neurocognitive disorder POCT URINALYSIS DIPSTICK Routine 07/07/2024 10:50 AM EST Neurocognitive disorder LIPID PANEL WITH REFLEX TO DIRECT LDL Routine 02/26/2024 1:10 PM EDT Pure hypercholesterolemia HM COLONOSCOPY Routine 03/10/2021 7:33 AM EDT from Last 3 Months or Most Recently Relevant to Health Maintenance Results * POCT Urinalysis (08/25/2024 9:49 AM EST) Only the most recent of2 resultswithin the time period is included. Color, UA Yellow Clarity, UA Clear Glucose, [...] (08/25/2024 12:00 AM EST) Color Urine Yellow [facility] Appearance Urine Clear [facility] PH 7.5 5.0 - 9.0 [facility] Glucose Urine UA Negative Negative mg/dL [facility] Urine Blood Negative Negative [facility] Specific [place] - Urine 1.010 1.005 - 1.025 [facility] Urine Protein Negative Neg-Trace mg/dL [facility] Urine Ketones Negative Negative mg/dL [facility] Nitrite Urine Negative Negative [facility] Leukocyte Esterase Urine Negative Negative [facility] Urine (Urine, Random) 08/25/2024 08/25/2024 Narrative [facility] - 08/25/2024 1:20 PM EST Urine, Clean Catch us Apple Gamboa MD LAB URINE ORDERABLES Fin al Result Performing Organization Address [facility] Co de Phone Number [facility] [address] [place] [phone] * TSH with Reflex to Free T4 (07/07/2024 11:19 AM EST) TSH reflex Free T4 1.53 0.32 - 4.0 uIU/mL [facility] Blood 07/07/2024 11:1 9 AM EST 07/07/2024 1:13 PM EST Apple Gamboa MD LAB BLOOD ORDERABLES Fin al Result Performing Organization Address [facility] de Phone Number [facility] [address] [place] [phone] * Hemoglobin A1c (07/07/2024 11:19 AM EST) Hemoglobin A1c 5.6 <6.0 % [facility] Comment:Hemoglobin A1C Refer ence Range Adults: 4.8 - 6.0 % Non diabetic: < 6.0 % Goal: < 7.0 %Additional Action Suggested: > 8.0 %Note: Hemoglobin A1c results are invalid for patients with abnormal amounts of HbF. Blood transfusions may impact the HbA1c concentration in the patient sample. Estimated Average Glucose 114 mg/dL [facility] Comment:eAG = Estimated ave rage glucose which is %A1C expressed asaverage glucose, using the formula of the R1W-ZvbaswoEtyhzyx Glucose study (ADAG), Diabetes Care, Vol.31,#8,2007 Blood Venous blood specimen / Unknown 07/07/2024 11:19 AM EST 07/07/2024 1:13 PM EST us Apple Gamboa MD LAB BLOOD ORDERABLES Fin al Result Performing Organization Address City/[facility]/ZIP Co de Phone Number [facility] [address] [place] [phone] * (ABNORMAL) Basic Metabolic Panel (07/07/2024 11:19 AM EST) Sodium 139 135 - 145 mmol/L [facility] Potassium 4.5 3.3 - 5.1 mmol/L [facility] Chloride 106 96 - 108 mmol/L [facility] Carbon Dioxide 28 22 - 29 mmol/L [facility] Anion Gap 10(L) 12 - 20 [facility] Urea Nitrogen (BUN) 18(H) 9 - 16 mg/dL [facility] Creatinine, Serum 0.86 0.5 - 1.4 mg/dL [facility] Estimated Glomerular Filt Rate >60 [facility] Comment:Chronic Kidney Disea se: Estimated GFR < 60 mL/min/[id number] Kidney Disease: Estimated GFR < 15 mL/min/1.73m2 Glucose 84 60 - 115 mg/dL [facility] Calcium 9.1 8.4 - 10.2 mg/dL [facility] Blood Venous blood specimen / Unknown 07/07/2024 11:19 AM EST 07/07/2024 1:13 PM EST us Apple Gamboa MD LAB BLOOD ORDERABLES Fin al Result Performing Organization Address [facility]/ZIP Co de Phone Number [facility] [address] [place] [phone] * (ABNORMAL) Lipid Panel with Reflex to Direct LDL (02/26/2024 1:10 PM EDT) Triglycerides 124 <150 mg/dL [facility] Comment:Desirable Triglyceri de: less than 150 mg/dLBorderline High Triglyceride 150-199 mg/dLHigh Triglyceride: 200-499 mg/dLVery High Triglyceride: greater than or equal to 5OO mg/dL Cholesterol 202(H) <200 mg/dL [facility] Comment:Desirable Cholestero l: less than 200 mg/dLBorderline High Cholesterol: 200-239 mg/dLHigh Cholesterol: greater than 239 mg/dL LDL Cholesterol Calculated 122(H) <100 mg/dL [facility] Comment:Desirable LDL: less than 100 mg/dLNear Optimal/Above Optimal LDL: 110- 129 mg/dLBorderline High LDL: 130-159 mg/dLHigh LDL: 160-189 mg/dLVery High LDL: greater than or equal to 190 mg/dL HDL Cholesterol 56 >40 mg/dL [facility] Comment:Desirable HDL: great er than 40 mg/dL Note: This HDL assay may give artificially low results in patients with liver disease. Blood 02/26/2024 1:10 PM EDT 02/26/2024 4:09 PM EDT Apple Gamboa MD LAB BLOOD ORDERABLES Fin al Result [facility] [address] [place] [phone] * Hm Colonoscopy (03/10/2021 7:33 AM EDT) us Historical Provider HEALTH MAINTENANCE Final Result from Last 3 Months or Most Recently Relevant to Health Maintenance Insurance MEDICARE ADVANTAGE HMO Care Teams Kinesiotherapist Relationship Specialty Start Date End Date Apple Gamboa MD [address] [place] [phone] PCP - General Family Medicine 03/25/20
--- OUTSIDE RECORDS SUMMARY | 2024-08-25 14:07 | XMS_ITS | Encounter Summary ---
Author Organization [employer] Address [address] [place] [address] Care Team Providers Care Electrotype Caster Name Role Phone Apple Gamboa MD Primary Care Provider + Reason for Visit * Reason Comments Med Change Request Encounter Details Date Type Department Care Team (Late st Contact Info) Description 08/03/2024 Refill [facility] [address] [place], [place] [phone] Apple Gamboa MD [address] [place], [place] [phone] Social History Tobacco Use Types Packs/Day Years [...] is your housing situation today? I have laazro gtz 03/03/[address] you [...] documented as of this encounter Care Teams Electrotype Caster Relationship Specialty Start Date End Date Apple Gamboa MD [address] [place] [phone] PCP - General Family Medicine 03/25/20 documented as of this encounter
== END 2024-08-25 12:58 | disposition home or self-care (01) ==
LOC: HO.HHCLNP 12:57
PROVIDERS: Visit Provider Internal Medicine
DX: R03.0 Elevated blood-pressure reading, without diagnosis of hypertension (principal)
CPT/HCPCS: 81003

== ENCOUNTER 2025-02-01 16:41 | Outpatient (REF) | payer MEDICARE, SELFPAY ==
--- OUTSIDE RECORDS SUMMARY | 2025-02-01 16:44 | XMS_ITS | Clinical Summary ---
Author Organization [facility] [employer] [facility] Address [address] [place] [address] Care Team Providers Care Fabric Sourcer Name Role Phone Jony Durand MD Primary [...] Comments DTaP,Tdap,and Td Vaccines (1 - Tdap) 10/03/1966 Pneumococcal Vaccine: 50+ Ye ars (1 of 1 - PCV) 10/03/1997 Zoster Vaccines (1 of 2) 10/03/1997 RSV Immunization Adult Patie nts (1 - 1-dose 75+ series) 10/03/2022 COVID-19 Vaccine (1 - 2023-2 5 season) 2024 Depression Screening 07/15/2024 Influenza Vaccine (#1) 2025 HIB Vaccines Aged Out No longer eligi [...] age to complete this topic Meningococcal B Vaccine Aged Out No l onger eligible based on patient's age to complete this topic RSV Immunization Patients Un nancy 20 months Aged Out No longer eligible b ased on patient's age to complete this topic Varicella Vaccines Aged Out No longer eligible based on patient's age to complete this topic Care Teams Fabric Sourcer Relationship Specialty Start Date End Date Jony Durand MD [address] [place] [phone] PCP - General Internal Medicine 11/14/15
--- OUTSIDE RECORDS SUMMARY | 2025-02-01 16:44 | XMS_ITS | Clinical Summary ---
Author Organization [facility] Address [address] [place] [address] Care Team Providers Care Civil Engineering Director Name Role Phone Unavailable Primary Care Provider Unavailabl e Social History Tobacco Use Types Packs/Day Years Used Date Smoking Tobacco: Never Assessed Sex and Gender Information Value Date Recorded Sex Assigned at Not on file Legal Sex Male 11:01 AM EST Gender Identity Not on file [...]
--- OUTSIDE RECORDS SUMMARY | 2025-02-01 16:44 | XMS_ITS | Encounter Summary ---
Author Organization [employer] Address [address] [place] [address] Care Team Providers Care At Risk Paraprofessional Name Role Phone Apple Gamboa MD Primary Care Provider + Reason for Visit * Reason Comments Med Change Request Encounter Details Date Type Department Care Team (Late st Contact Info) Description 08/18/2024 Refill [facility] [address] [place], [place] [phone] Apple Gamboa MD [address] [place], [place] [phone] Social History Tobacco Use Types Packs/Day Years [...] as of this encounter Plan of Treatment Upcoming Encounters Date Type Department Care Team (Late st Contact Info) Description 02/18/2025 9:00 AM EDT Office Visit [facility] [address] [place] [phone] Apple Gamboa MD [address] [place] [phone] documented as of this encounter Visit Diagnoses Not on filedocumented in this encounter Additional Health Concerns Assessment Noted Time PHQ-9 Depression Total Score: 0 07/07/20 24 10:21 AM EST documented as of this encounter Care Teams At Risk Paraprofessional Relationship Specialty Start Date End Date Apple Gamboa MD [address] [place] [phone] PCP - General Family Medicine 03/25/20 documented as of this encounter
[2025-02-01 17:41] LABS: Anion Gap 11 (12-20); Blood Urea Nitrogen 21 mg/dL (9-16); Calcium 8.4 mg/dL (8.4-10.2); Carbon Dioxide 22 mmol/L (22-29); Chloride 112 mmol/L (96-108); Cholesterol 185 mg/dL (<200); Estimated Glomerular Filt Rate > 60; HDL Cholesterol 51 mg/dL (>40); Potassium 4.2 mmol/L (3.3-5.1); Sodium 141 mmol/L (135-145); Triglycerides 139 mg/dL (<150)
[2025-02-01 17:59] LABS: Prostate Specific Antigen 1.57 ng/mL (<0.05-4.0)
[2025-02-01 18:13] LABS: Reflex LDLD? No
== END 2025-02-01 16:42 | disposition home or self-care (01) ==
LOC: HO.LAB 16:41
PROVIDERS: PCP Internal Medicine; Visit Provider Nurse Practitioner Family
DX: Z12.5 Encounter for screening for malignant neoplasm of prostate (principal); N40.0 Benign prostatic hyperplasia without lower urinary tract symptoms; R03.0 Elevated blood-pressure reading, without diagnosis of hypertension
CPT/HCPCS: 36415; 80048; 80061; 84153

== ENCOUNTER 2025-02-10 07:30 | Outpatient (AMB) | payer MEDICARE, SELFPAY ==
--- NOTE | 2025-02-10 07:31 | A.OFFVIS_ITS ---
Intake Visit Reasons: 1y/PSA Intake Note: Patient presents for follow up on: BPH, Enlarged Prostate, ,and PSA labs PSA: 1.57 Urology Medications: Finasteride and Tamsulosin Blood Thinner: none Previous PVR: 30ml's Development Spec Required: Yes Accompanied by: Daughter Allergies No Known Allergies Allergy (Verified 02/10/25 08:09) Medication List - Last Reconciled 02/10/25 by CHARISSA Edwards atorvastatin 40 mg PO DAILY finasteride 5 mg PO .MWF 90 days lisinopril mg PO propranolol 10 mg PO DAILY tamsulosin 0.4 mg PO DAILY 90 days HPI Comments Details: David is a pleasant 79-year-old male patient of Dr. Gamboa who was accompanied by his daughter during today's telehealth video. He is being followed up on today for his lower urinary tract symptoms. In discussion with the patient today he reports to be doing and feeling well. He denies having had any bothersome urinary issues or concerns. He reports compliance with Flomax and finasteride as prescribed. Recent PSA results were reviewed with the patient and his daughter today as noted and trended below: PSAa: 12/04 1.4, 12/05 1.1, 02/05 1.6 Previous workup has included a retroperitoneal ultrasound 12/04 noting bilateral kidneys with no calculi, lesions, and or hydronephrosis. The bladder is partially distended. Prevoid bladder volume is approximately 120 mL. Postvoid bladder volume is approximately 20 mL. Trabeculated urinary bladder. When asked he reports be happy with current voiding parameters. He denies urinary urgency, urinary frequency, incontinence, nocturia, hematuria, dysuria, foul smelling urine, changes to urinary stream, flank pain, fever, and or chills. He otherwise denies any other issues or concerns at this time. [facility] Medical History Tubular adenoma Diverticulosis Family history of adverse effect to anesthesia History of lumbar puncture Syphilis Surgical History Hx of colonoscopy History of nasal septoplasty Family History Mother Heart attack Paternal Uncle Alcoholic cirrhosis Cancer Paternal Aunt Thyroid condition Diabetes Social History Household Members: Children Alcohol intake: never Patient Tobacco Use Status: Former Tobacco user Tobacco use type: Cigarette Review of Systems Const All systems reviewed & are unremarkable except as noted in HPI and below Reports no additional complaints Eyes Reports no additional complaints ENT Reports no additional complaints Card Reports no additional complaints Resp Reports no additional complaints GI Reports no additional complaints Reports as per HPI Musc Reports no additional complaints Neuro Reports no additional complaints Psych Reports no additional complaints Endo Reports no additional complaints Adalberto/Lymph Reports no additional complaints Aller/Immun Reports no additional complaints Physical Exam Const General: cooperative, healthy appearing, comfortable, no acute distress, well developed, alert and awake Orientation/consciousness: patient oriented x3 Limitations: language barrier Resp Effort & Inspection: normal respiratory effort and able to speak in complete sentences Neuro General: patient oriented x3 Psych Appearance: well kempt Speech and movement: Clear speech present Attitude: cooperative Thought content: Normal thought content present Insight: Fair insight present (Psych) Judgement: Fair judgement present (Psych) Telehealth Telehealth Telehealth Platform: [employer] Location of provider rendering services: practice address Location of patient: address on file Patient Identification confirmed using: Name, : Yes Telehealth method: video Patient verbally consented to treatment: Yes Patient verbally consented to billing insurance company: Yes Patient informed of any privacy concerns related to visit: Yes Minutes spent on Phone/Video with Pt.: 20 Assessment & Plan Assessment & Plan (1) Urinary frequency: Code(s): R35.0 - Frequency of micturition Category: Medical (2) BPH (benign prostatic hyperplasia): Code(s): N40.0 - Benign prostatic hyperplasia without lower urinary tract symptoms Category: Medical (3) Enlarged prostate: Code(s): N40.0 - Benign prostatic hyperplasia without lower urinary tract symptoms Category: Medical (4) Lower urinary tract symptoms: Code(s): R39.9 - Unspecified symptoms and signs involving the genitourinary system Category: Medical Plan Recent PSA results reviewed with the patient today; as noted above. He currently denies any bothersome urinary issues or concerns. He reports be happy with current voiding parameters. Continue Flomax and finasteride as prescribed. Will obtain PSA in 1 year. Follow-up in 1 year with PSA and PVR; or sooner with any issues, concerns, and or questions. Orders: Orders Prostate Specific Antigen 1 Year N40.0 - Benign prostatic hyperplasia without lower urinary tract symptoms, R35.0 - Frequency of micturition, R39.9 - Unspecified symptoms and signs involving the genitourinary system Prostate Specific Antigen 02/01/25 N40.0 - Benign prostatic hyperplasia without lower urinary tract symptoms, Z12.5 - Encounter for screening for malignant neoplasm of prostate Patient Instructions: The patient had an opportunity to ask questions regarding the treatment plan. All questions were answered. Physical exam, labs, and imaging were discussed and reviewed in detail. As well as risks, benefits, and discussion of treatment choices. No major barriers to understanding were identified. The patient expressed understanding and agreement with the above treatment plan. The patient was made aware they should contact our office by phone for worsening of their current condition, the appearance of new symptoms, or with any questions or concerns. Compliance is encouraged with any medications and follow up testing that is ordered. It is a privilege to be allowed the opportunity to participate in? your urological care.? Again, if you have any questions or concerns If you have any questions or concerns please do not hesitate to contact me. The office is [phone]. This note is constructed using voice recognition software. While every effort has been made to ensure accuracy certified income tax preparer errors may have been included. Yours sincerely, CHARISSA Edwards Coding Level of Care Code Tele Est Pt Level 3 (60252) Complex EM visit Add On G2211 Diagnoses Urinary frequency R35.0 BPH (benign prostatic hyperplasia) N40.0 Enlarged prostate N40.0 Lower urinary tract symptoms R39.9
--- OUTSIDE RECORDS SUMMARY | 2025-02-10 07:32 | XMS_ITS | Clinical Summary ---
Author Organization [facility] Address [address] [place] [address] Care Team Providers Care Aircraft Maintenance Manager Name Role Phone Unavailable Primary Care Provider [...]
--- OUTSIDE RECORDS SUMMARY | 2025-02-10 07:32 | XMS_ITS | Encounter Summary ---
Author Organization [employer] Address [address] [place] [address] Care Team Providers Care Parachute Repairer Name Role Phone Apple Gamboa MD Primary Care Provider + Reason for Visit * Reason Comments Med Change Request Encounter Details Date Type Department Care Team (Late st Contact Info) Description 08/18/2024 Refill [facility] [address] [place], [place] [phone] Apple Gamboa MD [address], [place] [phone] Social History Tobacco Use Types Packs/Day Years [...] Description 02/18/2025 9:00 AM EDT Office Visit [facility] [address] [place] [phone] Apple Gamboa MD [address] [place] [phone] documented as of this encounter Visit Diagnoses Not on filedocumented in this encounter Additional Health Concerns Assessment Noted Time PHQ-9 Depression Total Score: 0 07/07/20 24 10:21 AM EST documented as of this encounter Care Teams Parachute Repairer Relationship Specialty Start Date End Date Apple Gamboa MD [address] [place] [phone] PCP - General Family Medicine 03/25/20 documented as of this encounter
--- OUTSIDE RECORDS SUMMARY | 2025-02-10 07:32 | XMS_ITS | Clinical Summary ---
Author Organization [employer] [facility] Address [address] [place] [address] Care Team Providers Care Iv Therapy Nurse Name Role Phone Jony Durand MD Primary [...] age to complete this topic Care Teams Iv Therapy Nurse Relationship Specialty Start Date End Date Jony Durand MD [address] [place] [phone] PCP - General Internal Medicine 11/14/15
== END 2025-02-10 08:46 | disposition home or self-care (01) ==
LOC: HO.HUSH 07:30
PROVIDERS: PCP Internal Medicine; Visit Provider Nurse Practitioner Family
DX: R35.0 Frequency of micturition (principal); N40.0 Benign prostatic hyperplasia without lower urinary tract symptoms; R39.9 Unspecified symptoms and signs involving the genitourinary system
CPT/HCPCS: 99213; G2211